=== PATIENT | female | born 1960 | race Caucasian/White ===

== ENCOUNTER 2024-02-06 22:06 | Inpatient (IN) | payer OTHER, SELFPAY ==
[2024-02-06] VITALS (9 sets, daily range): BP systolic 132–172; BP diastolic 79–102; BMI 38.1; BMI 37.7
--- NOTE | 2024-02-06 18:00 | ED.PDOC.TRB ---
ED Provider Triage
-
Patient seen by provider in Triage?: Seen in Triage
A medical screening examination has been initiated by a qualified medical provider. Based on the assessment performed at this time, it has been determined that an emergent medical condition may exist and the patient has been informed that further
medical evaluation and possible additional diagnostic testing may be needed.
HPI: This is a medical evaluation conducted in person to initiate diagnostic evaluation and provide initial therapeutics. Please see further documentation by the treating clinician.
GENERAL: Alert ,tearful
EYE: No visual abnormalities.
NECK: Trachea midline
ENT: No visible abnormalities.
LUNGS: No acute respiratory distress
NEUROLOGICAL: Alert and oriented
SKIN: no visible lesions.
MUSCULOSKELETAL: Moving extremities normally
PSYCH: Normal and appropriate interaction.
63-year-old female with past medical history of previous blood clot was on Eliquis but no longer on it over the past few years hypertension presenting to the emergency department after going to the urgent care for palpitations and found to be in
A-fib sent to the ER. Denies any chest pain does have some very vague shortness of breath only with exertion. The patient does have irregularly irregular rate and rhythm on examination. Initial labs and EKG ordered. Denies any new medications or
stimulant use.
[2024-02-06 18:25] LABS: % Basophils 0.9 % (0-2); % Eosinophils 2.8 % (0-6); % Immature Granulocytes 0.6 % (0-0.5); % Lymphocytes 19.9 % (20.5-51.1); % Monocytes 13.6 % (1.7-9.3); % Neutrophils 62.2 % (42.2-75.2); Absolute Basophils 0.1 10^3/uL (0-0.2); Absolute Eosinophils 0.3 10^3/uL (0-0.7); Absolute Immature Granulocytes 0.1 10^3/uL (0-0.05); Absolute Lymphocytes 2.2 10^3/uL (1.2-3.4); Absolute Monocytes 1.5 10^3/uL (0.1-0.6); Absolute Neutrophils 6.9 10^3/uL (1.4-6.5); Hemoglobin 16.4 g/dL (12.0-16.0); Mean Corp Hgb Conc. 34.9 g/dL (33.0-37.0); Mean Corpuscular Hgb 29.8 pg (27.0-31.0); Mean Corpuscular Volume 85.3 fL (81.0-99.0); Mean Platelet Volume 9.9 fL (7.4-10.4); Nucleated Red Blood Cells % 0 %; Platelet Count 254 10^3/uL (130-400); Red Blood Cell Count 5.51 10^6/uL (4.20-5.40); Red Cell Dist. Width 13.6 % (11.5-14.5); White Blood Cell Count 11.1 10^3/uL (4.8-10.8)
[2024-02-06 18:36] LABS: ALT (SGPT) 26 U/L (0-35); AST (SGOT) 29 U/L (14-36); Albumin 4.7 g/dl (3.5-5.0); Alkaline Phosphatase 87 U/L (38-126); Blood Urea Nitrogen 17 mg/dl (7-17); Calcium 9.7 mg/dl (8.4-10.2); Carbon Dioxide 28 mmol/L (22-30); Chloride 104 mmol/L (98-107); Glucose 105 mg/dl (70-99); Magnesium 2.1 mg/dl (1.6-2.3); Potassium 4.5 mmol/L (3.5-5.1); Sodium 145 mmol/L (135-145); Total Bilirubin 0.5 mg/dl (0.2-1.3); Total Protein 7.6 g/dl (6.3-8.2); eGFR > 60.00
[2024-02-06 19:06] LABS: TSH 2.09 uIU/ml (0.47-4.68)
[2024-02-06] MEDS: CARDIZEM 125 IV (19:35)
[2024-02-06] MEDS: CARDIZEM 10 MG IV (19:35)
[2024-02-06 19:39] LABS: INR 1.05; PT 13.8 Sec (11.4-14.6)
[2024-02-06] MEDS: NSS 1000 IV ×2 (19:42→23:43)
--- NOTE | 2024-02-06 20:31 | ED.GENMED ---
History of Present Illness
General
Chief Complaint: Heart Rate Problem
Source: patient
Exam Limitations: none
Time Seen by Provider: 02/06/24 19:04
History of Present Illness
History of Present Illness:
63-year-old female who presents after started feeling her heart flutter. The patient states that symptoms began abruptly suddenly this morning. Patient states that she has had palpitations off and on for long periods of time and wonders if she has
had this in the past. Patient does admit to being a little bit short of breath and has felt little bit dyspneic with exertion. No chest pain. No leg swelling. No leg cramping. She admits she has had a DVT in the past but was told she could stop
her anticoagulation.
Past History
Past History
ED Past Medical History: HTN, Hypercholesterolemia and Other (DVT)
ED Past Surgical History: Cholecystectomy and Gynecological
Social History
Tobacco: Non-smoker
Alcohol: Occasional
Drug: None
Personal:
Living: with family
Family History
Family History: Other (No history of gallbladder disease.)
Phy Exam
Physical Exam
Physical Exam:
CONSTITUTIONAL Patient alert and oriented to person, place and time. Well-appearing. Vital signs reviewed.
HEAD atraumatic, normocephalic.
EYES eyelids normal to inspection, Pupils equally round and reactive to light, Extraocular muscles intact, Conjunctiva normal, Sclera normal.
NECK normal range of motion, Trachea midline, no jugular venous distention.
RESPIRATORY CHEST No respiratory distress noted, Chest expansion equal, Bilateral breath sounds clear.
CARDIOVASCULAR irregularly irregular and tachycardic, Heart sounds normal.
ABDOMEN abdomen nontender, Bowel sounds normal. No distention.
BACK normal inspection, no obvious deformities
UPPER EXTREMITY range of motion normal, Motor strength normal, no cyanosis, no edema.
LOWER EXTREMITY range of motion normal, Motor strength normal, no cyanosis, no edema. No palpable cords. Negative Homans
NEURO Speech normal, No focal motor deficits, Malissa coma scale 15, Memory normal, Cranial Nerves intact to screening exam.
SKIN skin warm, dry, and normal in color.
PSYCHIATRIC patient oriented to person place and time, Normal affect.
Course
Orders/Labs/Results
Orders:
Orders
02/06/24 Breakfast
Regular
At Your Request: Full Participation
02/06/24 17:59
Electrocardiogram (*1) Stat
Reason for Study: Other
Other Reason for Exam: chest pain
EKG- Treatment ONCE
02/06/24 18:14
Complete Blood Count/With Diff Urgent
Comprehensive Metabolic Panel Urgent
Magnesium Urgent
TSH Urgent
02/06/24 19:22
PTT Urgent
Comment: ADD ON
Prothrombin Time Urgent
02/06/24 19:26
0.9% Sodium Chloride 1000 ml [Nss] 1,000 ml IV BOLUS
Diltiazem 125 mg/125 ml Nss [Cardizem] 125 mg in 125 ml IV NOW
Initial dose in mg/hr, then titrate:: 5
Titrate to keep:: Heart rate 80-100 bpm
Titrate by mg/hr:: 5 mg/hr
Frequency of titrations (minutes):: 15
Maximum dose in mg/hr:: 15
Diltiazem HCl [Cardizem] 10 mg IV NOW STA
02/06/24 19:27
CT Chest Pe Study Urgent
Comment:
Reason For Exam: sob, h/o DVT, new AF
02/06/24 20:20
EKG [Electrocardiogram (*1)] Urgent
Reason for Study: Atrial Fibrillation
EKG- Treatment ONCE
02/06/24 20:30
Heparin 8,100 units IV NOW STA
Heparin 30052 Units/250 ml 25,000 units in 250 ml IV PER PROTOCOL
Weight to be used for heparin protocol in kilograms (kg):: 100.7
Protocol:: DVT/PE
PTT Goal Range to be used:: PTT 73 to 111 seconds
Order type:: Initial
INITIAL Infusion Dose (UNITS/KG/hr) & then follow protocol:: 18 units/kg/hr
Infusion Dose in UNITS/hr & then follow protocol (UNITS/hr):: 1,800
INFUSION RATE in mL/hr & then follow protocol (mL/hr):: 18
For DVT/PE algorithm, re-bolus for low PTT?: Yes
PTT less than or equal to 64 seconds:: Re-bolus 80 units/kg (max 10,000units). Increase by 400 units/hr
(+ 4mL/hr)
PTT 64.1 to 72.9 seconds:: Re-bolus 40 units/kg (max 5,000 units). Increase by 200 units/hr
(+ 2mL/hr)
PTT 73 to 111 seconds:: Target Range. No change in rate.
PTT 111.1 to 130.9 seconds:: Decrease rate by 200 units/hr (- 2 mL/hr)
PTT 131 to 199.9 seconds:: HOLD for 1 hr. Then decrease by 300 units/hr (- 3mL/hr)
PTT greater than or equal to 200 seconds:: HOLD for 2 hrs & Notify Provider. Then decrease by 400 units/hr
(- 4mL/hr)
Lab follow-up:: Each change, PTT q6h until 2 consecutive are therapeutic. Then
PTT daily.
Nursing to Place Non Medication Order As Directed
Physician Order: PTT 6 hours after initial start of Heparin infusion
Above order entered?: Yes
02/06/24 20:39
Heparin 4,000 units IV PRN PRN
Heparin 8,000 units IV PRN PRN
02/06/24 20:51
Add On- LAB Urgent
Tests Added?: APTT
02/06/24 21:15
Admit/Transfer Patient As Directed
Co-Sign Provider:
Level of Care: Inpatient admission
Assign to:: Telemetry
Physician / Group: Hunter
Diagnosis: PE, A-Fib
Reason for Telemetry: Chest Pain syndromes
Date to Stop Telemetry: 02/08/24
Time to Stop Telemetry: 11:00
Reason for Hospitalization: PE, A-Fib
Expected length of stay greater than two midnights?: Yes
ELOS- Estimated Length of Stay in days: 2
I certify the patient meets the requirements for IP care: Yes
PRN Pain Medication Management As Directed
May give lesser potent ordered pain med per pt: Yes
preference::
Protocol:: Medication orders for pain may be administered in a
manner that supports deferring to patient preference
when the pt is:
- Requesting an ordered lesser potent pain medication.
Least to most potent pain medications are defined
as: acetaminophen < NSAID < tramadol < opioids
(morphine, oxycodone, hydromorphone).
- Requesting a lesser dose of the same medication IF
ORDERED.
- Requesting a less intrusive route of administration
if both routes are prescribed by the provider (PO <
IV).
02/06/24 21:16
Code Status As Directed
Resuscitation Status: Full Code
02/06/24 22:00
Flush (0.9% Sodium Chloride) [Flush (Nss)] See Dose Instructions IV PER PROTOCOL
02/06/24 23:27
Troponin I Q6H
0.9% Sodium Chloride 1000 ml [Nss] 1,000 ml IV 125 mls/hr
Acetaminophen [Tylenol] 650 mg PO Q4HPRN PRN
Escitalopram Oxalate [Lexapro] 20 mg PO HS
Lurasidone HCl [Latuda] 20 mg PO HS
02/06/24 23:27
Echo 2D MMode Doppler [Echo 2D MMode Color/Doppler] Routine
Reason for Study: PE,
Case Management Consult ONCE
Case Management Consult: Discharge Planning
Heparin Protocol- PTT Orders As Directed
PTT per Heparin protocol: -Obtain CBC and baseline PTT - if not already collected.
-Obtain PTT 6 hours from start of infusion. Then, every 6 hours until 2 consecutive
PTT's are therapeutic. Then, PTT Daily.
-With each rate change, obtain PTT every 6 hours until 2 consecutive PTT's are
therapeutic. Then, PTT Daily.
Activity As Directed
Activity Level: Ambulate
With Assistance
EKG with chest pain [ECG as needed] As Directed
ECG as needed for:: Chest Pain
I/O [Intake/ Output] As Directed
Frequency: Per unit guidelines
Notify MD As Directed
Notify physician if: PTT is greater than or equal to 200.
Vital Signs As Directed
Frequency: Per unit guidelines
Weight As Directed
Frequency: Daily
Oxygen Therapy [O2 Therapy] [RESP] Routine
Titrate/Wean O2 to maintain O2 sat greater than (%): 94
Periph Venous LOWER Ext Jose M Routine
Comment: Not urgent. Already on anticoagulation
Reason For Exam: DVT, PE
02/07/24 03:00
PTT Urgent
02/07/24 05:27
Troponin I Q6H
02/07/24 06:00
Basic Metabolic Panel IN AM
02/07/24 08:00
Lisinopril [Zestril] 5 mg PO DAILY
Rosuvastatin Calcium [Crestor] 10 mg PO DAILY
02/07/24 11:27
Troponin I Q6H
02/08/24 06:00
Complete Blood Count/No Diff Q2D
Comment: notify provider: Platelet count < 130,000 or decrease by 50% from baseline
02/08/24 11:00
DC Protocol for Telemetry ONCE
02/10/24 06:00
Complete Blood Count/No Diff Q2D
Comment: notify provider: Platelet count < 130,000 or decrease by 50% from baseline
02/12/24 06:00
Complete Blood Count/No Diff Q2D
Comment: notify provider: Platelet count < 130,000 or decrease by 50% from baseline
02/14/24 06:00
Complete Blood Count/No Diff Q2D
Comment: notify provider: Platelet count < 130,000 or decrease by 50% from baseline
02/16/24 06:00
Complete Blood Count/No Diff Q2D
Comment: notify provider: Platelet count < 130,000 or decrease by 50% from baseline
02/18/24 06:00
Complete Blood Count/No Diff Q2D
Comment: notify provider: Platelet count < 130,000 or decrease by 50% from baseline
02/20/24 06:00
Complete Blood Count/No Diff Q2D
Comment: notify provider: Platelet count < 130,000 or decrease by 50% from baseline
02/22/24 06:00
Complete Blood Count/No Diff Q2D
Comment: notify provider: Platelet count < 130,000 or decrease by 50% from baseline
Abnormal Lab Results
02/06/24
18:14
WBC 11.1 H 10^3/uL
(4.8-10.8)
RBC 5.51 H 10^6/uL
(4.20-5.40)
Hgb 16.4 H g/dL
(12.0-16.0)
Abs Immat Gran (auto) 0.1 H 10^3/uL
(0-0.05)
Absolute Neuts (auto) 6.9 H 10^3/uL
(1.4-6.5)
Absolute Monos (auto) 1.5 H 10^3/uL
(0.1-0.6)
Immature Gran % 0.6 H %
(0-0.5)
Lymphocytes % 19.9 L %
(20.5-51.1)
Monocytes % 13.6 H %
(1.7-9.3)
Glucose 105 H mg/dl
(70-99)
02/06/24 18:14
02/06/24 18:14
Vital Signs
Initial and Last Documented VS:
Initial Vital Signs
Temp Pulse Resp BP Pulse Ox
97.9 F 117 20 160/90 93
02/06/24 17:54 02/06/24 17:54 02/06/24 17:54 02/06/24 17:54 02/06/24 17:54
Last Documented Vital Signs
Temp Pulse Resp BP Pulse Ox
98.4 F 84 18 156/86 96
02/06/24 23:40 02/06/24 23:40 02/06/24 23:40 02/06/24 23:53 02/06/24 23:40
MDM/Problems Addressed
MDM/Problems Addressed:
Atrial fibrillation with RVR, bilateral pulmonary embolisms
*Radiology
Radiology exam reviewed: preliminary read by ED provider (CT reviewed immediately upon completion and noted to have bilateral main artery pulmonary embolisms)
*Pulse Oximetry
Patient hypoxic: no
*EKG
Interpreted by ED Provider?: Yes
Interpretation: abnormal
Rate: tachycardiac
Rhythm: a-fib
Interval: normal interval
Ischemia: non-specific ST changes
*Director Of Sustainability Interpretation
Rate: tachycardiac
Interpretation: abnormal
Rhythm: a-fib
*Critical Care Note
Total Time (30-74mins, 75-104mins- exclusive of procedures): 45 minutes
Data Reviewed
Source: patient
Further Testing Considered But Not Given:
Considered IR consultation but patient is stable
Patient Management
Discussion with other providers: Hospitalist and Radiologist
Escalation/DeEscalation of care consider admission/obs:
63-year-old female with history of DVT presents with new onset A-fib. Likely did convert to normal sinus rhythm after Cardizem drip and bolus. However given history CTA does reveal bilateral pulmonary emboli. Hemodynamically she is somewhat
stable at this point. No indication for intervention. Admit
ED Attending Note
-
Portions of this chart may have been created with voice recognition software.� Occasional wrong word or��sound alike� substitutions may have occurred due to the inherent limitations of voice recognition software.
Discharge Plan
Departure
Patient Disposition: Admit
Date of Disposition: 02/06/24
Time of Disposition: 20:31
Admit to: Telemetry
Presentation/result/management discussed w/ accepting MD/DO: Hospitalist
Discharge Problem:
Bilateral pulmonary embolism, Atrial fibrillation with RVR
Interventions
Interventions:
*Risk Screen - Suicide Last Done: 02/06/24 19:13
*General Assessment Last Done: 02/06/24 19:13
*Neglect/Abuse Screening Last Done: 02/06/24 19:13
*ED COVID-19 Vaccine History Last Done: 02/06/24 17:54
*Nursing Disposition Last Done: 02/06/24 23:20
ED- Cardiac Assessment Last Done: 02/06/24 19:13
ED- Pulmonary Assessment Last Done: 02/06/24 19:13
Discharge Date and Time
Discharge Date/Time: 02/06/24 23:22
[2024-02-06] MEDS: HEPARIN 8100 UNITS IV (20:53)
[2024-02-06] MEDS: HEPARIN 25000 UNITS/250 ML IV (20:57)
[2024-02-06 21:08] LABS: APTT 27.8 Sec (23.4-35.0)
--- NOTE | 2024-02-06 22:09 | HPS.HSE ---
Family Physician
-
Family Physician: Olvin Dasilva
Chief Complaint
-
Palpitations
History of Present Illness
Patient is a 63y F with PMH significant for hypertension, prior LLE DVT and lifelong palpitations who presents to ED complaining of palpitations. Patient states that she started with racing heartbeat / palpitations this AM. She notes that she
has had similar symptoms in the past - reporting episodic palpitations for much of her life. These are typically triggered by some sort of physical or emotional stress and tend to resolve rather quickly.
Today she took a nap in the afternoon hoping that her symptoms would resolve. When she woke she continued to have palpitations.
She presented to an Urgent Care at the urging of her family and was noted there to be in A-Fib. Patient denies any prior history of A-Fib / flutter or other clearly defined arrhythmia.
Patient was directed to the ED for further evaluation.
In the ED patient was noted to be in atrial fibrillation with rapid ventricular response. She was started on IV diltiazem and promptly converted back to NSR.
During evaluation in the ED, CTA chest was done which was positive for large, bilateral pulmonary emboli.
Patient denies any chest pain She does reports some dyspnea with exertion, but states that this has been going on to some extent since November.
Medical History
Past Medical History
Past Medical History: Reports Other
Additional Past Medical History:
Hypertension
Mild - Moderate Aortic Stenosis
LLE DVT
Anxiety
Obesity
Past Surgical History: Reports Other
Additional Past Surgical History:
Cervical Lymph Node Excision
Cholecystectomy
Breast Biopsy
Shoulder Arthroscopy
Social History
Tobacco: Non-smoker
Alcohol: None
Drug: None
Family History
Family History: Not pertinent
Allergies / Home Medications
Allergies reflects when Allergies were last updated in [facility].
Home Medications with original date entered in [facility]
Allergy/Medication List:
Allergies
Allergy/AdvReac Type Severity Reaction Status Date / Time
No Known Allergies Allergy Verified 02/06/24 18:01
Home Medications
escitalopram oxalate 20 mg tablet 20 mg PO HS 04/15/10
lisinopril 5 mg tablet 5 mg PO DAILY 04/15/10
magnesium 250 mg tablet 250 mg PO DAILY 10/27/11
clotrimazole-betamethasone 1 %-0.05 % topical cream 1 applic topical BIDPRN PRN itching 02/06/24
lurasidone 20 mg tablet 20 mg PO HS 02/06/24
rosuvastatin 10 mg tablet 10 mg PO DAILY 02/06/24
therapeutic multivitamin 1 tab PO DAILY 02/06/24
Review of Systems
-
History Source: Patient
A 12 point ROS was completed and negative except as noted: Yes
Constitutional: Reports Fatigue; Denies Fever or Chills
Respiratory: Denies Cough or Trouble Breathing
Cardiac: Reports Palpitations; Denies Chest Pain, Diaphoresis or Syncope
Abdomen/GI: Denies Abdominal Pain, Nausea, Vomiting or Diarrhea
: Denies Dysuria or Flank Pain
Musculoskeletal: Denies Joint Pain or Edema
Neurological: Denies Dizzy or Headache
Psych: Denies Depression or Anxiety
Physical Exam
Vital Signs
Vital Signs
Temp Pulse Resp BP Pulse Ox
97.9 F 120 17 136/84 94
02/06/24 17:54 02/06/24 19:35 02/06/24 19:13 02/06/24 19:35 02/06/24 19:13
Physical Exam
General: Other (63y F in no acute distress. Somewhat anxious regarding new diagnosis.)
HEENT: Moist mucous membranes and PERRLA
Respiratory: Clear; No Wheezes, Rales or Rhonchi
Cardiac: S1/S2, Regular Rhythm and Murmur (II/ AMY)
GI: Soft, Non Tender, Non Distended and Normal Bowel Sounds
Musculoskeletal: No Clubbing, No Cyanosis, No Edema and Other (No calf tenderness / cords.)
Neuro: AO x 3
Laboratory Results
-
02/06/24 18:14
02/06/24 18:14
Laboratory Results
PT 13.8 Sec (11.4-14.6) 02/06/24 19:22
INR 1.05 02/06/24 19:22
APTT Cancelled 02/06/24 20:30
Total Bilirubin 0.5 mg/dl (0.2-1.3) 02/06/24 18:14
AST 29 U/L (14-36) 02/06/24 18:14
ALT 26 U/L (0-35) 02/06/24 18:14
Alkaline Phosphatase 87 U/L (38-126) 02/06/24 18:14
Impression/Plan
-
A/P: Patient is a 63y F with PMH significant for HTN, prior DVT and anxiety who presents to ED for evaluation of palpitations.
Bilateral Pulmonary Emboli
History of LLE DVT
- Admit for further evaluation and treatment.
- CTA done in the ED with large, bilateral, proximal PEs.
- Not hypotensive or hypoxemic. No complaints of chest pain or dyspnea.
- IV heparin infusion overnight.
- Begin OAC prior to discharge (previously took Eliquis with good tolerance).
- Check Echo in AM.
- Follow for any new symptoms / complaints.
- Can check LE Dopplers in the AM for evidence of DVT.
- LLE DVT diagnosed in 2020 and took nearly a year on OAC for this to resolve.
- ? Vasc Sx eval / consideration for May-Thurner Syndrome. But CT A/P was done in 2021 and did not reveal any evidence of iliac compression.
- Patient will likely require lifelong anticoagulation at this point, for several reasons.
Atrial Fibrillation / Paroxysmal
- Current episode likely secondary to PE; however, patient describes lifelong episodes of palpitations.
- Denies any prior history of ambulatory monitoring, LINQ, etc.
- Now back in NSR.
- Monitor on telemetry.
- Cardiology evaluation.
- OAC as noted above.
Aortic Stenosis
- Mild - moderate on most recent Echo (2021).
- Update Echo as noted above.
Generalized Anxiety Disorder
- Somewhat anxious regarding current medical issues - understandably so.
- Continue current OP med regimen.
Obesity due to excess calories
- Affects all aspects of care - including increased risk of VTE.
- Encourage healthy diet and increased exercise with goal of weight loss.
DVT Prophylaxis: On IV Heparin
Code Status: Full
--- NOTE | 2024-02-06 23:30 | PTCARENOTE ---
Received pt from ED AAO*4, Pt transferred from stretcher to bed with minimal assistance. Vital signs stable. Heparin gtt running at 1800 units hour R hand PIV. NS at 125cc hour as per order via R AC PIV. All orders reviewed and acknowledged. Pt
updated with plan and oriented to room. Bed in low position with call acosta within reach.
[2024-02-06] MEDS: LATUDA 20 MG PO (23:43)
[2024-02-06] MEDS: LEXAPRO 20 MG PO (23:43)
[2024-02-07 03:36] LABS: APTT > 200 Sec (23.4-35.0)
--- NOTE | 2024-02-07 03:36 | PTCARENOTE ---
Ptt resulted at >200 with heparin gtt at 1800 units. Jeff Hennessy notified. Will follow protocol and hold heparin for 2 hours and restart gtt at 1400 units hour and repeat PTT at 0936.
[2024-02-07 03:55] VITALS: BP 140/78
[2024-02-07 06:00] VITALS: BMI 37.6
[2024-02-07 07:02] LABS: Troponin I 0.032 ng/ml
--- NOTE | 2024-02-07 07:21 | CON.CAR ---
Addendum entered and electronically signed by Misti Madrigal MD 02/07/24 13:53:
I saw and examined the patient.
The Director Service's note was reviewed and I agree with the note.
Comment: Patient seen by me and independently examined. She has prior history of lower extremity DVT treated with Eliquis for which she believes she had negative hematology assessment. She is sedentary and visits her who is in the facility
every day spending hours in the seated position. She had stop by [employer] and began having palpitations and chest discomfort with shortness of breath. She feels fine at rest but 'can feel it when she gets up to do activity '. She then presented to
the ER and was diagnosed with large pulmonary emboli with mild right heart strain by CT scan. She now has right-sided lower extremity DVT. Echocardiogram with normal LV and RV function. Pulmonary hypertension suggested by pressure measurement
(60s). She has known aortic valve stenosis which is currently moderate. Pulmonary has been consulted. She is currently on heparin. Oxygenation status is stable without supplemental oxygen. She had palpitations with this event and presented with
atrial fibrillation and spontaneously converted to sinus rhythm. She tells me she has been feeling these flutters now and then at times. In the past she had a different sensation of rapid heartbeat triggered by ectopy throughout her life. In the
distant past as a child she was even seen by cardiology for this. They felt this was not a concerning rhythm at that time.
Plan at this time:
-Pulmonary and primary service to treat pulmonary embolism in the setting of right heart strain and increased PA pressures
-Currently on heparin continue
-On discharge reassess echocardiogram in 3 months which we will schedule with office visit given mild right heart strain and increased PA pressures. Discussed with patient
-New atrial fibrillation noted on presentation. No recurrence. She will be on anticoagulation for pulmonary embolism and this will also cover atrial fibrillation and we will continue to assess as outpatient. After acute dosing for pulmonary
embolism patient should be on atrial fibrillation dosing of anticoagulation and continued. She is [id number] score of 2. She knows to call if increased palpitations noted. By history she may also have a history of SVT.
-Continue follow-up for aortic valve disease as we discussed.
Addendum entered and electronically signed by RUSTAM Edward 02/07/24 13:37:
Will repeat echocardiogram in 3 months to follow-up on elevated pulmonary pressures. Echocardiogram will be scheduled at time of her upcoming hospital follow-up visit which is scheduled for 1 month from now.
Original Note:
Consultation
Consultation Request
Date/Time Consultation Requested: 02/06/24 619
Date/Time Consultation Performed: 02/07/24 95
Requesting Provider: Cem Harrison DO
Performing Provider: RUSTAM Edward for Misti Madrigal MD
Reason for Consultation: afib, PE
Medical History
-
Chief Complaint: palpitations
History of Present Illness:
63y F with PMH significant for hypertension, prior LLE DVT 05/31 (treated with Eliquis but not currently on), mild-mod aortic stenosis, and lifelong palpitations who presents to ED complaining of palpitations. Patient states that she started
with racing heartbeat / palpitations on the morning of admission. She had a busy day, transporting her children to the airport and visiting her at his assisted living facility. She has had similar symptoms in the past but they always
resolve. Because the symptoms did not resolve she was encouraged by her family to go to an urgent care. She was found to be in atrial fibrillation and directed to the emergency room. In the past, palpitations were triggered by some sort of
physical or emotional stress and tended to resolve rather quickly. With the palpitations she reports associated mild chest discomfort, 'not pain'. She reports getting short of breath which she chalked up to fatigue and inactivity. She has no PND,
orthopnea, edema, she denies calf pain.
In the ED patient was noted to be in atrial fibrillation with rapid ventricular response. She was started on IV diltiazem and promptly converted back to NSR.
During evaluation in the ED, CTA chest was done which was positive for large, bilateral pulmonary emboli with evidence of RV strain. She was started on Heparin gtt.
She is getting an echocardiogram currently.
She denies any previous history of clotting disorder and any family history of clotting disorder. She was seen by hematology at the time of her DVT in 2020 and tells me she had a workup. She is not aware of any abnormal findings.
She flew to [place] in November. She tells me she spends a lot of time sitting in a recliner as her resides in an assisted living facility and she spends a lot of time sitting with him.
PMH:
HTN
LLE DVT - 05/31
palpitations
aortic stenosis - mild-mod
anxiety
obesity
Past Medical History
Past Medical History: Other (as above)
Past Surgical History: Cholecystectomy, , Gynecological (breast biopsy), Orthopedic (shoulder arthroscopy) and Other (cervical lymph node excision)
Social History
Tobacco: Former Smoker (Quit 1984)
Alcohol: Occasional (Glass of wine once a month)
Drug: None
Personal:
Living: Alone ( is in an assisted living facility)
Family History
Family History: Reviewed & Not Pertinent
Allergies / Home Medications
Allergy/AdvReac Type Severity Reaction Status Date / Time
No Known Allergies Allergy Verified 02/06/24 18:01
�Medication �Instructions �Recorded �Confirmed �Type
escitalopram oxalate 20 mg tablet 20 mg PO HS 04/15/10 02/06/24 History
lisinopril 5 mg tablet 5 mg PO DAILY 04/15/10 02/06/24 History
magnesium 250 mg tablet 250 mg PO DAILY 10/27/11 02/06/24 History
clotrimazole-betamethasone 1 1 applic topical BIDPRN PRN itching 02/06/24 02/06/24 History
%-0.05 % topical cream
lurasidone 20 mg tablet 20 mg PO HS 02/06/24 02/06/24 History
rosuvastatin 10 mg tablet 10 mg PO DAILY 02/06/24 02/06/24 History
therapeutic multivitamin 1 tab PO DAILY 02/06/24 02/06/24 History
Physical Exam
Vital Signs
Temp Pulse Resp BP Pulse Ox
98 F 78 18 140/78 91
02/07/24 03:55 02/07/24 03:55 02/07/24 03:55 02/07/24 03:55 02/07/24 03:55
O2 sat 91-94% on RA
GEN: No distress, awake, Ox3, breathing comfortable
HEENT: supple, anicteric, mmm
LUNGS: CTA, no wheezes/rales
CV: Reg, S1/S2, 2 out of 6 systolic ejection murmur left sternal border
ABD: soft, BS+, NT/ND
EXT: No edema
NEURO: Gross non-focal
SKIN: No rash
Lab Results
02/06/24 18:14
Troponin I 0.032 ng/ml 02/07/24 05:22
troponin 02/07/24 0059: 0.040
troponin 02/07/24 0522: 0.032
serial 3rd troponin pending
EKG 02/06/249 personally reviewed: afib with RVR
EKG 02/06/242022 personally reviewed: NSR
Physical Exam
General: Other (See above)
Impression / Plan
-
PCP: Olvin Dasilva
Cardiology: Reji Baron MD (last seen 06/01)
IMPRESSION:
B/L large pulmonary embolism -new
paroxysmal atrial fibrillation - new
h/o LLE DVT diagnosed 05/31, treated with Eliquis at the time
HTN
palpitations
anxiety
obesity
elevated troponin
Echocardiogram 03/10/22: Normal LV size and function with no wall motion abnormalities, EF 65%. Mild concentric LVH, normal diastolic function. Normal RV size and function, mild to moderate aortic stenosis (34/16/ 1.2-1.3) compared to previous echo
aortic stenosis has progressed from mild to mild to moderate. PASP 20-25mmHg.
Lexiscan MIBI 06/29/2022: Small, mild mildly reversible defect in the apical lateral and apex consistent with soft tissue attenuation, EF 70%.
Ultrasound peripheral venous lower extremities 05/16/2022: No evidence of DVT of the left lower extremity
Chest CT 02/06/24: Large pulmonary emboli within the right and left pulmonary arteries extending throughout segmental pulmonary arteries with evidence of mild right heart strain with flattening of the interventricular septum and slight flux of
contrast into the IVC. Main pulmonary artery mildly dilated at 3.6 cm suggestive of pulmonary artery hypertension.
Ultrasound LE today 02/07/24: There is nonocclusive deep venous thrombosis in the right popliteal vein
Echocardiogram 02/07/24: normal LV and RV function, EF 70-75%, mod (46/24/1.2). PASP 60-65 mmHg -was normal last echo 03/02
Plan: 63y F with PMH hypertension, prior LLE DVT 05/31 (previously treated with Eliquis), aortic stenosis, and lifelong palpitations who presents to ED complaining of persistent palpitations. Found to be in rapid atrial fibrillation and CT
chest showed B/L large pulmonary emboli with evidence of RV strain and pulmonary artery hypertension. She converted back to NSR after one dose of IV Diltiazem. Initial troponin 0.04 and trending down. She was started on Heparin gtt. Echo today
shows normal LV and RV function but new elevation in pulmonary artery pressures. She also has a new right lower extremity DVT per lower extremity ultrasound.
1. new B/L PE
-continue heparin with eventual plan to transition or oral anticoagulation for PE dosing
-Echo today shows normal LV and RV function but new elevation in pulmonary artery pressures
-pulmonary consult
-Patient reports having previous hematologic workup at time she had DVT. She will need to follow-up with her strategy execution consultant, Dr. Moffett. This can be done in the outpatient setting.
-O2 sats low to mid 90s off oxygen
-not tachycardic
2. paroxysmal afib
-presented with palpitations and found to be in rapid afib. Converted back to NSR after one dose IV Cardizem. Has longstanding h/o palpitations - could have been undiagnosed afib. Would recommend lifelong anticoagulation given recurrent
thromboembolism and now diagnosed afib. CHA2DS Vasc score 4 (HTN, previous thromboembolism, female).
-start beta dave if recurrent afib
-personally reviewed telemetry, no recurrent afib. NSR HRs 70s.
-Will arrange for follow-up in our office within 1 month.
3. aortic stenosis
-Echo today shows moderate aortic stenosis, this has progressed since last echo in 2021.
Follow-up with ornamental plaster sticker in outpatient setting for long-term management. Continue statin with LDL goal less than 70.
4. HTN
-BPs mildly elevated
-continue Lisinopril
-t/c increase Lisinopril if not started on rate controlling med
5. elevated troponin - initial trop 0.04 and 2nd troponin trending down. Continue serial trop x 3. Pt without CP and EKG nonischemic. Troponin elevation likely nonischemic myocardial injury.
discussed case with nurse. Answered patient's questions.
Data Reviewed
-
EKG: Tracing Personally Visualized and interpreted
[2024-02-07 07:25] LABS: Blood Urea Nitrogen 15 mg/dl (7-17); Calcium 8.8 mg/dl (8.4-10.2); Carbon Dioxide 22 mmol/L (22-30); Chloride 107 mmol/L (98-107); Estimated Creatinine Clearance 94 ml/min; Glucose 102 mg/dl (70-99); Potassium 4.2 mmol/L (3.5-5.1); Sodium 143 mmol/L (135-145); eGFR > 60.00
[2024-02-07 07:50] VITALS: BP 148/81
[2024-02-07 08:09] LABS: Hepatitis C Antibody Negative (Negative)
--- NOTE | 2024-02-07 10:03 | W.PN.HOSP.TC ---
Today's Communication/Plan
-
IV heparin for now
monitor HR
Pulm recs
ECHO
Assessment / Plan
Assessment / Plan
A/P: Patient is a 63y F with PMH significant for HTN, prior DVT and anxiety who presents to ED for evaluation of palpitations.
Bilateral Pulmonary Emboli
RLE DVT
History of LLE DVT
- CTA done in the ED with large, bilateral, proximal PEs.
- Not hypotensive or hypoxemic. No complaints of chest pain or dyspnea.
- IV heparin infusion and switch to Eliquis in 24-36h
- Echo with no regional wall motion abnormality. EF 7075%. Stage I diastolic dysfunction. Moderate aortic stenosis. Trace TR. PASP 60 to 65%.
- Follow for any new symptoms / complaints.
- CT A/P was done in 2021 and did not reveal any evidence of iliac compression.
- Patient will likely require lifelong anticoagulation at this point, for several reasons.
- Pulmonary consulted.
- f/u with primary auto adjudication specialist Dr. Moffett as OP.
Atrial Fibrillation / Paroxysmal
- Current episode likely secondary to PE; however, patient describes lifelong episodes of palpitations.
- Denies any prior history of ambulatory monitoring, LINQ, etc.
- Now back in NSR.
- Monitor on telemetry.
- Cardiology evaluation.
- OAC as noted above.
Pulmonary hypertension
-Possibly secondary to pulmonary embolism versus possibility of SAJAN/OHS
-Recommend sleep study if not recently done
Elevated troponin likely 2/2 non ischemic myocardial injury in setting of PE/Afib
-trend for now.
-ECHO as above.
-Cards following
Aortic Stenosis
- Mild - moderate on most recent Echo (2021).
- Update Echo as noted above.
Generalized Anxiety Disorder
- Somewhat anxious regarding current medical issues - understandably so.
- Continue Latuda
Obesity due to excess calories
- Affects all aspects of care - including increased risk of VTE.
- Encourage healthy diet and increased exercise with goal of weight loss.
DVT Prophylaxis: On IV Heparin
Code Status: Full
Anticipated Discharge: > 48 hours
Subjective/Interval History
-
Date of Service: February 07, 2024
hx of DVT
air travelled in November
Objective Data
-
Labs:
Laboratory Results
02/07/24 02/07/24 02/07/24
02:58 05:22 09:36
PT Cancelled
INR Cancelled
APTT > 200 H* Cancelled
Sodium 143
Potassium 4.2
Chloride 107
Carbon Dioxide 22
BUN 15
Creatinine 0.7
Glucose 102 H
Calcium 8.8
02/07/24
11:36
PT Pending
INR Pending
APTT Pending
Sodium
Potassium
Chloride
Carbon Dioxide
BUN
Creatinine
Glucose
Calcium
Vital Signs:
Vital Signs
Temp Pulse Resp BP Pulse Ox
97.5 F 75 20 148/81 94
02/07/24 07:50 02/07/24 07:50 02/07/24 07:50 02/07/24 07:50 02/07/24 07:50
I&O
02/06/24 02/07/24 02/08/24
06:59 06:59 06:59
Intake Total 1090 / 1090
Balance 1090 / 1090
Physical Exam
-
General: Well Developed and No Apparent Distress
HEENT: Normocephalic, Atraumatic and Moist Mucous Membranes
Respiratory: Clear to Auscultation
Cardiac: Regular Rhythm and S1/S2; Negative Murmur, Rub or Gallop
GI: Soft, Nontender, Nondistended and Normal Bowel Sounds; Negative Organomegaly
Rectal: Deferred by Provider
Musculoskeletal: No Clubbing, No Cyanosis and No Edema
Skin: Negative Rash
Neuro: Awake, AO x 3 and Nonfocal/Grossly Intact
Data Reviewed
-
Total Time Spent with Patient (in minutes): 56
[2024-02-07] MEDS: CRESTOR 10 MG PO (10:04)
[2024-02-07] MEDS: ZESTRIL 5 MG PO (10:04)
[2024-02-07] MEDS: NSS 1000 IV (10:04)
--- NOTE | 2024-02-07 11:17 | CON.PUL ---
Consultation
Consultation Request
Date/Time Consultation Requested: 02/07/24
Date/Time Consultation Performed: 02/07/24
Performing Provider: Fernando
Reason for Consultation: PE
Medical History
-
History of Present Illness:
Patient is a 63-year-old female with previous history of left lower extremity DVT, hypertension, obesity presenting with palpitations noted the day of admission. She was diagnosed with atrial fibrillation. Of note, she had CT obtained indicating
positive large bilateral pulm emboli as well. She has lower extremity duplex showing right lower extremity DVT.
She was diagnosed with left lower extremity DVT 2 years ago and completed 3 months of Eliquis. There was demonstrated recurrence of clot in which she was placed on a prolonged course of Eliquis she thinks about 6 months additionally. She denies
any family history of blood clots. She is not aware of any genetic history.
Denies any prior history of lung disease, she was a former smoker half a pack a day for 10 years, quit over 30 years ago.
She denies any history of snoring, has never had a sleep study.
.
Past Medical History
Past Medical History: Other (see list below)
Social History
Tobacco: Former Smoker
Alcohol: None
Drug: None
Family History
Family History: Reviewed & Not Pertinent
Allergies / Home Medications
Allergies
Allergy/AdvReac Type Severity Reaction Status Date / Time
No Known Allergies Allergy Verified 02/06/24 18:01
Home Medications
�Medication �Instructions �Recorded �Confirmed �Last Taken �Type
escitalopram oxalate 20 mg tablet 20 mg PO HS Depression 04/15/10 02/06/24 02/05/24 History
lisinopril 5 mg tablet 5 mg PO DAILY Blood Pressure 04/15/10 02/06/24 02/06/24 History
magnesium 250 mg tablet 250 mg PO DAILY Electrolyte 10/27/11 02/06/24 02/06/24 History
Repletion
clotrimazole-betamethasone 1 1 applic topical BIDPRN PRN itching 02/06/24 02/06/24 Unknown History
%-0.05 % topical cream
lurasidone 20 mg tablet 20 mg PO HS Mental Health/Anxiety 02/06/24 02/06/24 02/05/24 History
rosuvastatin 10 mg tablet 10 mg PO DAILY High Cholesterol 02/06/24 02/06/24 02/06/24 History
therapeutic multivitamin 1 tab PO DAILY Supplement 02/06/24 02/06/24 02/06/24 History
Review of Systems
-
History Source: Patient
All other systems: Negative unless noted
Vitals / Labs / Diagnostic Testing
Vital Signs
Temp Pulse Resp BP Pulse Ox
97.5 F 75 20 148/81 94
02/07/24 07:50 02/07/24 07:50 02/07/24 07:50 02/07/24 07:50 02/07/24 07:50
Lab Data
02/06/24 18:14
02/07/24 05:22
Laboratory Results
02/06/24 02/06/24 02/07/24
19:22 20:30 02:58
PT 13.8
INR 1.05
APTT 27.8 Cancelled > 200 H*
02/07/24
09:36
PT Cancelled
INR Cancelled
APTT Cancelled
Diagnostic Testing:
Physical Exam
-
HEENT: Normocephalic, Anicteric and Moist Mucous Membranes
Cardiovascular: S1/S2 and Regular Rhythm
Respiratory: Clear and Non-Labored Respirations
GI: Soft, Non Distended and Non Tender
Neurology: Awake, Alert, Oriented, AO x 3 and No Motor Deficits
Skin: Warm, Dry and Good Color
General: Comfortable and Other (NAD)
Assessment
-
Patient is a 63-year-old female with previous history of left lower extremity DVT, hypertension, obesity presenting with palpitations noted the day of admission. She was diagnosed with atrial fibrillation. Of note, she had CT obtained indicating
positive large bilateral pulm emboli as well. She has lower extremity duplex showing right lower extremity DVT. We are consulted for eval.
Bilateral Pulmonary Emboli
RLE DVT
New onset Afib, palpitations
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
History of LLE DVT
HTN
PAF
Anxiety
Obesity, BMI 37
Cervical Lymph Node Excision
Cholecystectomy
Breast Biopsy
Shoulder Arthroscopy
Plan
No oxygen was needed on admission, currently saturating >90% on RA
Home O2 evaluation if needed
Prior history of lung disease is not noted
She was diagnosed with left lower extremity DVT 2 years ago and completed 3 months of Eliquis.
There was demonstrated recurrence of clot in which she was placed on a prolonged course of Eliquis she thinks about 6 months additionally.
She denies any family history of blood clots. She is not aware of any genetic history.
Denies any prior history of lung disease, she was a former smoker half a pack a day for 10 years, quit over 30 years ago.
She denies any history of snoring, has never had a sleep study.
CXR/CT obtained indicating bilateral PE
Other imaging reviewed
We discussed lifelong OAC, she is aware
Can transition IV hep to PO eliquis, she has tolerated this before
ECHO results pending, reviewed normal function
Mildly elevated trops, mild RHS likely
Moderate PH noted, will need repeat ECHO as OP to monitor
Weight loss measures recommended
Obesity likely contributing to respiratory symptoms
Will need outpatient pulmonary evaluation in our office for PFTs and 6MWT
Reviewed with patient
Risk factors assessed for underlying sleep disordered breathing also noted, recommend outpatient PSG/sleep evaluation
We will follow
Diagnostic Data
Chest X-Ray:
CT Scan: CHEST 02/06/24- 1. Large pulmonary emboli within the right and left pulmonary arteries extending throughout the segmental pulmonary arteries. There is evidence of mild right heart strain with flattening of the interventricular septum and
slight flux of contrast into the IVC. The main pulmonary artery is mildly dilated measuring 3.6 cm suggestive of pulmonary arterial hypertension.
LE Duplex- There is nonocclusive deep venous thrombosis in the right popliteal vein
Echo: 02/07/24- Normal left ventricular size and systolic function. No regional wall motion abnormalities are seen. LV ejection fraction is 70-75%. Mild concentric left ventricular hypertrophy. Stage I diastolic dysfunction suggestive of abnormal
relaxation. Normal right ventricular size. Normal right ventricular systolic function. Structurally normal mitral valve without significant stenosis or regurgitation. Moderate aortic stenosis. Peak/mean gradients are 46/24mmHg. The valve area by
pressure half time is 1.2cm sq, using a LVOT of 2.0cm. Mild aortic regurgitation. Trace tricuspid regurgitation. Estimated pulmonary artery pressure of 60-65 mmHg. Assuming a right atrial pressure of 8 mmHg. Compared to prior study 03/10/2022
pulmonary hypertension is now noted. Aortic valve stenosis is now moderate.
PFT's:
Reports and relevant images were personally reviewed.
Total time spent on this consultation __75__ includes review of history, physical exam, medications, laboratory data, personal review of imaging, extensive review of outpatient records, discussion with care team and respiratory therapy.
[2024-02-07 11:20] VITALS: BP 183/88
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
[2024-02-07 11:58] LABS: INR 1.15; PT 14.8 Sec (11.4-14.6)
[2024-02-07 12:00] LABS: APTT 90.7 Sec (23.4-35.0)
[2024-02-07 12:19] LABS: Troponin I < 0.012 ng/ml
[2024-02-07] MEDS: HEPARIN 25000 UNITS/250 ML IV (14:29)
[2024-02-07] MEDS: ZESTRIL 15 MG PO (15:35)
[2024-02-07 15:45] VITALS: BP 181/88
[2024-02-07 19:30] VITALS: BP 134/83
[2024-02-07] MEDS: TYLENOL 650 MG PO (20:18)
[2024-02-07 20:44] LABS: APTT 63.6 Sec (23.4-35.0)
[2024-02-07] MEDS: HEPARIN 8000 UNITS IV (21:13)
[2024-02-07] MEDS: LATUDA 20 MG PO (21:42)
[2024-02-07] MEDS: LEXAPRO 20 MG PO (21:42)
[2024-02-07 23:54] VITALS: BP 144/68
[2024-02-08 03:27] VITALS: BP 133/81
[2024-02-08 03:50] LABS: APTT > 200 Sec (23.4-35.0)
[2024-02-08 06:29] LABS: Hematocrit 41.8 % (37.0-47.0); Hemoglobin 14.4 g/dL (12.0-16.0); Mean Corp Hgb Conc. 34.4 g/dL (33.0-37.0); Mean Corpuscular Hgb 29.9 pg (27.0-31.0); Mean Corpuscular Volume 86.9 fL (81.0-99.0); Mean Platelet Volume 10.5 fL (7.4-10.4); Platelet Count 211 10^3/uL (130-400); Red Blood Cell Count 4.81 10^6/uL (4.20-5.40); Red Cell Dist. Width 13.6 % (11.5-14.5); White Blood Cell Count 8.9 10^3/uL (4.8-10.8)
[2024-02-08 07:33] VITALS: BP 141/78
[2024-02-08] MEDS: HEPARIN 25000 UNITS/250 ML IV (08:11)
[2024-02-08] MEDS: ZESTRIL 20 MG PO (08:14)
[2024-02-08] MEDS: CRESTOR 10 MG PO (08:15)
--- NOTE | 2024-02-08 09:33 | W.PN.CARDCBS ---
Addendum entered and electronically signed by Samy Henderson MD 02/08/24 15:51:
I saw and examined the patient.
The Construction Plumber's note was reviewed and I agree with the note.
Comment: Briefly, 63-year-old woman past medical history of moderate aortic stenosis and DVT who presented initially with palpitations and dyspnea found to be in atrial fibrillation which is a new diagnosis
CT PE was ordered and she was found to have pulmonary embolism as well
Transthoracic echocardiogram with elevated PA pressures however she had normal RV size and function -plan to repeat in approximately 3 months to reassess PA pressures
Episode of atrial fibrillation was brief, she spontaneously converted to sinus rhythm while in the emergency department
Maintained on heparin drip here, being transitioned to Eliquis for discharge
Stable cardiac status
Outpatient follow-up has been arranged
Addendum entered and electronically signed by RUSTAM Edward 02/08/24 11:21:
Given complaints of dizziness, I reduced Lisinopril to 10 mg daily.
Original Note:
Today's Communication / Plan
-
-transition to oral anticoagulation
-no recurrent afib
-ambulate-check O2 with exertion
outpatient cardiology f/u 1 month, repeat echo 3 months - already arranged
Impression / Plan
-
PCP: Olvin Dasilva
Cardiology: Reji Baron MD (last seen 06/01)
IMPRESSION:
B/L large pulmonary embolism -new
paroxysmal atrial fibrillation - new
RLE DVT- new
elevated pulmary pressures and RV strain on echo-new
aortic stenosis (moderate)
shortness of breath
dizziness
h/o LLE DVT diagnosed 05/31, treated with Eliquis at the time
HTN
palpitations
anxiety
obesity
elevated troponin
Echocardiogram 03/10/22: Normal LV size and function with no wall motion abnormalities, EF 65%. Mild concentric LVH, normal diastolic function. Normal RV size and function, mild to moderate aortic stenosis (34/16/ 1.2-1.3) compared to previous echo
aortic stenosis has progressed from mild to mild to moderate. PASP 20-25mmHg.
Lexiscan MIBI 06/29/2022: Small, mild mildly reversible defect in the apical lateral and apex consistent with soft tissue attenuation, EF 70%.
Ultrasound peripheral venous lower extremities 05/16/2022: No evidence of DVT of the left lower extremity
Chest CT 02/06/24: Large pulmonary emboli within the right and left pulmonary arteries extending throughout segmental pulmonary arteries with evidence of mild right heart strain with flattening of the interventricular septum and slight flux of
contrast into the IVC. Main pulmonary artery mildly dilated at 3.6 cm suggestive of pulmonary artery hypertension.
Ultrasound LE 02/07/24: There is nonocclusive deep venous thrombosis in the right popliteal vein
Echocardiogram 02/07/24: normal LV and RV function, EF 70-75%, mod (46/24/1.2). PASP 60-65 mmHg -was normal last echo 03/02
Plan: 63y F with PMH hypertension, prior LLE DVT 05/31 (previously treated with Eliquis, had hematologic workup at the time which she believes was negative), aortic stenosis, and lifelong palpitations who presents to ED complaining of persistent
palpitations. Found to be in rapid atrial fibrillation and CT chest showed B/L large pulmonary emboli with evidence of RV strain and pulmonary artery hypertension. She converted back to NSR after one dose of IV Diltiazem. Initial troponin 0.04
and trended down. She was started on Heparin gtt. Echo today shows normal LV and RV function but new elevation in pulmonary artery pressures. She also has a new right lower extremity DVT per lower extremity ultrasound. Lisinopril was increased
yesterday from 5 mg daily to 20 mg daily as BPs were elevated in 180s/ systolically. Today she feels a little dyspneic with walking into the bathroom. O2 sats have been 92-94% on RA. Also c/o mild dizziness.
1. new B/L PE
-continue heparin with eventual plan to transition to oral anticoagulation for PE dosing - to be determined by primary team and pulmonary. Pt was on Eliquis in the past and tolerated.
-Echo today shows normal LV and RV function but new elevation in pulmonary artery pressures
-appreciate pulmonary consult- pt will need lifelong anticoagulation, outpatient pulmonary evaluation with PFTs and 6MWT
-Patient reports having previous hematologic workup at time she had DVT. She will need to follow-up with her disability rater, Dr. Moffett. This can be done in the outpatient setting.
-has not required oxygen
-repeat echo in 3 months to reassess PAPs
2. paroxysmal afib
-presented with palpitations and found to be in rapid afib. Converted back to NSR after one dose IV Cardizem. Has longstanding h/o palpitations - could have been undiagnosed afib or SVT. Would recommend lifelong anticoagulation given recurrent
thromboembolism and now diagnosed afib. CHA2DS Vasc score 4 (HTN, previous thromboembolism, female).
-personally reviewed telemetry, no recurrent afib. NSR HRs 70s.
-follow-up in our office has been arrange for 1 month.
3. aortic stenosis
-Echo today shows moderate aortic stenosis, this has progressed since last echo in 2021.
Follow-up with car shagger in outpatient setting for long-term management. Continue statin with LDL goal less than 70.
4. HTN
-BPs better controlled but now feeling dizzy
-would consider reducing Lisinopril to 10 mg daily
5. elevated troponin - initial trop 0.04 and 2nd troponin trending down. Continue serial trop x 3. Pt without CP and EKG nonischemic. Troponin elevation likely nonischemic myocardial injury.
6. SOB - feeling a little more short of breath today. O2 sat has been low normal. Lungs CTA. Would have her ambulate and check O2 sat with ambulation.
Plan discussed with pt and I answered patient's questions.
Progress Note - Ibm Bpm Developer
Subjective
Date of Service: February 08, 2024
Objective
Labs:
02/08/24 05:15
02/07/24 05:22
Labs
Hgb 14.4 g/dL (12.0-16.0) 02/08/24 05:15
Hct 41.8 % (37.0-47.0) 02/08/24 05:15
Plt Count 211 10^3/uL (130-400) 02/08/24 05:15
PT 14.8 Sec (11.4-14.6) H 02/07/24 11:31
INR 1.15 02/07/24 11:31
APTT > 200 Sec (23.4-35.0) H* 02/08/24 03:16
Sodium 143 mmol/L (135-145) 02/07/24 05:22
Potassium 4.2 mmol/L (3.5-5.1) 02/07/24 05:22
BUN 15 mg/dl (7-17) 02/07/24 05:22
Creatinine 0.7 mg/dL (0.6-1.0) 02/07/24 05:22
Glucose 102 mg/dl (70-99) H 02/07/24 05:22
Troponins
02/07/24 02/07/24 02/07/24
00:59 05:22 11:31
Troponin I 0.040 H* 0.032 < 0.012 D
Vital Signs and I&O:
Vital Signs
Temp Pulse Resp BP Pulse Ox
97.6 F 65 22 141/78 94
02/08/24 07:33 02/08/24 07:33 02/08/24 07:33 02/08/24 08:14 02/08/24 07:33
Vital Signs
Temp Pulse Resp BP Pulse Ox
97.6 F 65 22 141/78 94
02/08/24 07:33 02/08/24 07:33 02/08/24 07:33 02/08/24 08:14 02/08/24 07:33
Intake & Output
0802/07/24 02/08/24 02/09/24
06:59 06:59 06:59 06:59
Intake Total 1090 / 1090 118 / 118
Balance 1090 / 1090 118 / 118
Physical Exam
Physical Exam
O2 sat 92-94% on RA
GEN: No distress, awake, Ox3, breathing comfortable
HEENT: supple, anicteric, mmm
LUNGS: CTA, no wheezes/rales
CV: Reg, S1/S2, 2 out of 6 systolic ejection murmur left sternal border
ABD: soft, BS+, NT/ND
EXT: No edema
NEURO: Gross non-focal
SKIN: No rash
[2024-02-08 10:38] LABS: APTT 104.5 Sec (23.4-35.0)
--- NOTE | 2024-02-08 10:48 | PTCARENOTE ---
pt ambulated with RN Pulsox remained between 90-95% on RA and HR in 80s
[2024-02-08 11:33] VITALS: BP 139/81
[2024-02-08] MEDS: ELIQUIS 10 MG PO (11:45)
--- NOTE | 2024-02-08 11:53 | PTCARENOTE ---
Heparin gtt stopped, D/W CM re: Deejay gaines
--- NOTE | 2024-02-08 11:58 | W.PN.HOSP.TC ---
Addendum entered and electronically signed by Andrea Hawk MD 02/08/24 14:55:
PE with mild cor pulmonale as CT chest with There is evidence of mild right heart strain with flattening of the interventricular septum and slight flux of contrast into the IVC. The main pulmonary artery is mildly dilated measuring 3.6 cm
suggestive of pulmonary arterial hypertension.
Original Note:
Today's Communication/Plan
-
po eliquis
OP repeat ECHO
Assessment / Plan
Assessment / Plan
A/P: Patient is a 63y F with PMH significant for HTN, prior DVT and anxiety who presents to ED for evaluation of palpitations.
Bilateral Pulmonary Emboli
RLE DVT
History of LLE DVT
- CTA done in the ED with large, bilateral, proximal PEs.
- Not hypotensive or hypoxemic. No complaints of chest pain or dyspnea.
- Echo with no regional wall motion abnormality. EF 70-75%. Stage I diastolic dysfunction. Moderate aortic stenosis. Trace TR. PASP 60 to 65%.
- Follow for any new symptoms / complaints.
- CT A/P was done in 2021 and did not reveal any evidence of iliac compression.
- Patient will likely require lifelong anticoagulation at this point, for several reasons.
- Pulmonary consulted.
- f/u with primary patient relations liaison Dr. Moffett as OP. Patient verbalized understanding and agreed
- Patient stable on room air. Patient ambulated in the hallway with RN with stable heart rate and O2 sats stable did not qualify for home O2. Does, transition heparin to Eliquis
Atrial Fibrillation / Paroxysmal
- Current episode likely secondary to PE; however, patient describes lifelong episodes of palpitations.
- Denies any prior history of ambulatory monitoring, LINQ, etc.
- Now back in NSR.
- Monitor on telemetry.
- Cardiology evaluation.
- OAC as noted above.
Pulmonary hypertension
-Possibly secondary to pulmonary embolism versus possibility of SAJAN/OHS
-Recommend sleep study if not recently done
Elevated troponin likely 2/2 non ischemic myocardial injury in setting of PE/Afib
-ECHO as above.
-Cards following
Primary hypertension
-Lisinopril dose adjusted to 10 mg (felt dizzy with 20mg)
Aortic Stenosis
- Mild - moderate on most recent Echo (2021).
- Update Echo as noted above.
Generalized Anxiety Disorder
- Continue Latuda
Obesity due to excess calories
- Affects all aspects of care - including increased risk of VTE.
- Encourage healthy diet and increased exercise with goal of weight loss.
DVT Prophylaxis: Eliquis
Code Status: Full
Dispo Home later today.
More than 30 minutes spent in discharge including
Final examination of the patient
Summarizing hospital stay
Instructions for continuing care to all relevant caregivers
Preparation of discharge records, prescriptions, and referral forms
Total time spent (in minutes): 52
Anticipated Discharge: Today
Subjective/Interval History
-
Date of Service: February 08, 2024
Feeling better
Denies any chest pain or palpitations
Feeling tired overall
Remains in normal sinus rhythm on telemetry
No episode of tachycardia noted on telemetry
Objective Data
-
Labs:
Laboratory Results
02/08/24 02/08/24 02/08/24
03:16 05:15 10:11
WBC 8.9
Hgb 14.4
Hct 41.8
Plt Count 211
APTT > 200 H* 104.5 H
Vital Signs:
Vital Signs
Temp Pulse Resp BP Pulse Ox
97.5 F 70 22 139/81 96
02/08/24 11:33 02/08/24 11:33 02/08/24 11:33 02/08/24 11:33 02/08/24 11:33
I&O
0802/08/24 02/09/24
06:59 06:59 06:59
Intake Total 1089 / 1089 118 / 118
Balance 1089 118 / 118
Physical Exam
-
General: Well Developed and No Apparent Distress
HEENT: Normocephalic, Atraumatic and Moist Mucous Membranes
Respiratory: Clear to Auscultation
Cardiac: Regular Rhythm and S1/S2; Negative Murmur, Rub or Gallop
GI: Soft, Nontender, Nondistended and Normal Bowel Sounds; Negative Organomegaly
Rectal: Deferred by Provider
Musculoskeletal: No Clubbing, No Cyanosis and No Edema
Skin: Negative Rash
Neuro: Awake, Alert, Oriented, AO x 3, No Motor Deficits and Nonfocal/Grossly Intact
--- NOTE | 2024-02-08 12:09 | W.PN.PUL3 ---
Today's Communication / Plan
-
Doing well, stable on RA
No need for O2
Transitioned to Eliquis, tolerating well
Encouraged ambulation
Outpatient FU discussed, information left in chart
Discharge planning per team
Assessment
-
Patient is a 63-year-old female with previous history of left lower extremity DVT, hypertension, obesity presenting with palpitations noted the day of admission. She was diagnosed with atrial fibrillation. Of note, she had CT obtained indicating
positive large bilateral pulm emboli as well. She has lower extremity duplex showing right lower extremity DVT. We are consulted for eval.
Bilateral Pulmonary Emboli
RLE DVT
New onset Afib, palpitations
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
History of LLE DVT
HTN
PAF
Anxiety
Obesity, BMI 37
Cervical Lymph Node Excision
Cholecystectomy
Breast Biopsy
Shoulder Arthroscopy
Plan
No oxygen was needed on admission, currently saturating >90% on RA
Home O2 evaluation if needed
Prior history of lung disease is not noted
She was diagnosed with left lower extremity DVT 2 years ago and completed 3 months of Eliquis.
There was demonstrated recurrence of clot in which she was placed on a prolonged course of Eliquis she thinks about 6 months additionally.
She denies any family history of blood clots. She is not aware of any genetic history.
Denies any prior history of lung disease, she was a former smoker half a pack a day for 10 years, quit over 30 years ago.
She denies any history of snoring, has never had a sleep study.
CXR/CT obtained indicating bilateral PE
Other imaging reviewed
We discussed lifelong OAC, she is aware
Transitioned to Eliquis, tolerating well
ECHO results pending, reviewed normal function
Mildly elevated trops, mild RHS likely
Moderate PH noted, will need repeat ECHO as OP to monitor
Weight loss measures recommended
Obesity likely contributing to respiratory symptoms
Will need outpatient pulmonary evaluation in our office for PFTs and 6MWT
Reviewed with patient
Risk factors assessed for underlying sleep disordered breathing also noted, recommend outpatient PSG/sleep evaluation
Outpatient FU discussed again
Discharge planning per team
Diagnostic Data
Chest X-Ray:
CT Scan: CHEST 02/06/24- 1. Large pulmonary emboli within the right and left pulmonary arteries extending throughout the segmental pulmonary arteries. There is evidence of mild right heart strain with flattening of the interventricular septum and
slight flux of contrast into the IVC. The main pulmonary artery is mildly dilated measuring 3.6 cm suggestive of pulmonary arterial hypertension.
LE Duplex- There is nonocclusive deep venous thrombosis in the right popliteal vein
Echo: 02/07/24- Normal left ventricular size and systolic function. No regional wall motion abnormalities are seen. LV ejection fraction is 70-75%. Mild concentric left ventricular hypertrophy. Stage I diastolic dysfunction suggestive of abnormal
relaxation. Normal right ventricular size. Normal right ventricular systolic function. Structurally normal mitral valve without significant stenosis or regurgitation. Moderate aortic stenosis. Peak/mean gradients are 46/24mmHg. The valve area by
pressure half time is 1.2cm sq, using a LVOT of 2.0cm. Mild aortic regurgitation. Trace tricuspid regurgitation. Estimated pulmonary artery pressure of 60-65 mmHg. Assuming a right atrial pressure of 8 mmHg. Compared to prior study 03/10/2022
pulmonary hypertension is now noted. Aortic valve stenosis is now moderate.
PFT's:
Reports and relevant images were personally reviewed.
Total time spent on this encounter __50__ includes review of history, physical exam, medications, laboratory data, personal review of imaging, extensive review of outpatient records, discussion with care team and respiratory therapy.
Subjective Data
-
Date of Service:
Date of Service: February 08, 2024
Chief Complaint: Pulmonary Follow Up
Subjective:
Doing well, stable on RA
Offers no new complaints
Objective Data
Data Reviewed
Vital Signs / I&O / Oxygen:
Vital Signs
Temp Pulse Resp BP Pulse Ox
97.5 F 70 22 139/81 96
02/08/24 11:33 02/08/24 11:33 02/08/24 11:33 02/08/24 11:33 02/08/24 11:33
Intake and Output
02/07/24 02/08/24 02/09/24
06:59 06:59 06:59
Intake Total 1090 / 1090 118 / 118
Balance 1090 / 1090 118 / 118
SaO2 96
Physical Exam
General: Comfortable and Other (NAD)
HEENT: Normocephalic, Anicteric and Moist Mucous Membranes
Cardiovascular: S1-S2 and Regular Rhythm
Respiratory: Clear and Non-Labored Respirations
GI: Soft, Non Distended and Non Tender
Neurology: Awake, Alert, Oriented, AO x 3 and No Motor Deficits
Skin: Warm, Dry and Good Color
Labs/Micro/Reports
Lab Data
02/08/24 05:15
02/07/24 05:22
Laboratory Results
02/07/24 02/07/24 02/08/24
18:12 20:19 03:16
APTT Cancelled 63.6 H > 200 H*
02/08/24
10:11
APTT 104.5 H
--- NOTE | 2024-02-08 12:57 | W.DCSUMMARY ---
Discharge Summary
Discharge Data
Date of Admission: 02/06/24
Date of Discharge: 02/08/24
-
Pending Results: No
Hospital Course
63-year-old female past medical history of prior DVT, generalized anxiety disorder, primary hypertension, aortic stenosis, morbid obesity, who was presented to the hospital with complaints of palpitation. Patient was found to be in new onset of
atrial fibrillation. Patient did convert to normal sinus rhythm. Patient was coming shortness of breath and underwent CT chest. CT chest showed patient positive bilateral pulmonary embolism. Patient was also found to right lower extremity acute
DVT. Underwent echocardiogram no regional wall motion abnormality. EF 70-75%. Stage I diastolic dysfunction. Moderate aortic stenosis. Trace TR. PASP 60 to 65%. Per cardiology no rate control agents were started. Patient was evaluated by
cardiology, pulmonary. Patient was stable on room air. Patient remained in normal sinus rhythm. IV heparin was transitioned to p.o. Eliquis. Patient did not qualify for home oxygenation. Patient was also found to pulmonary hypertension was
recommended to follow-up with cardiology for repeat echocardiogram. Also recommend to undergo outpatient sleep study evaluation. Patient with primary hypertension which seems mildly elevated lisinopril dose was increased to 10 mg. Patient be
discharged home with recommendation to follow-up outpatient with fashion design professor, transition program manager and her primary oncologist Dr. Moffett. Per patient her prior hypercoagulable workup was found to be negative.
Discharge Plan
-
Patient Disposition: Home (Routine Discharge)
Discharge Diagnosis/Procedures: Bilateral pulmonary embolism
Right lower extremity DVT
Paroxysmal atrial fibrillation
Pulmonary hypertension
Elevated troponin
Primary hypertension
Condition: Fair
Diet: As tolerated
Activity: With assistance, As tolerated and No strenuous activity
Driving Restrictions: As prior to admission
Activity Restrictions/Additional Instructions:
Take Eliquis 10 mg (2 tabs) twice daily for additional 13 dose then one 5 mg (1 tab) twice daily
Instructions: Pulmonary embolism (blood clot in the lung), Pulmonary embolism - Discharge instructions
Referrals:
Luis Antonio Moffett DO [Active] - in two to four weeks
Charity King DO [Active] - in six weeks (PFTs)
Olvin Dasilva MD [Family Provider] - in less than 1 week
Kassi Barnett PA-C [Specified Professional Personl] - 03/05/24 9:00 am
(follow up with Dr Baron's physician surveyor instrument assistant for initial f/u visit from hospital.
will need f/u echo in 3 months which will be scheduled at time of f/u OV)
Prescriptions:
New
Eliquis 5 mg tablet
See Rx Instructions .ROUTE .COMPLEX Qty: 72 0RF
Rx Instructions:
Take Eliquis 10 mg (2 tabs) twice daily for additional 13 dose then 5 mg (1 tab) twice daily
Continued
escitalopram oxalate 20 MG tablet
20 mg PO HS
magnesium 250 MG tablet
250 mg PO DAILY
therapeutic multivitamin Tablet
1 tab PO DAILY
clotrimazole-betamethasone 1-0.05 % Cream
1 applic TOPICAL BIDPRN PRN (Reason: itching)
rosuvastatin 10 mg Tablet
10 mg PO DAILY
lurasidone 20 mg Tablet
20 mg PO HS
Changed
lisinopril 5 MG tablet
10 mg PO DAILY 30 Days Qty: 60 0RF
Discharge Orders:
Discharge Patient (As Directed); Ordered 02/08/24
Ordered By: Andrea Hawk
Discharge Date and Time
Print Language: DANISH
--- NOTE | 2024-02-08 14:25 | CM ---
CM notified of new Rx for Eliquis. I met with May to provide information about the Eliquis copay card which she is eligible for ($10 copay per refill). She was thankful for this and will use her local pharmacy for the Eliquis. No additional
needs at this time.
Plan: May has a friend who will drive her home. Discharge to home today with Eliquis copay card and no additional needs identified.
--- NOTE | 2024-02-08 14:48 | PN.CDI ---
CDI
- -
CDI:
Physician Documentation Request
Admit Date: 02/06/24 22:06
Dear Doctor Carine,
Patient admitted with new bilateral PE.
Signed ECHO conclusion states ' EF 70-75%. Normal right ventricular size. Normal right ventricular systolic function. Estimated pulmonary artery pressure of 60-65'
02/07 cardio note states 'elevated pulmonary pressures and RV strain on echo-new'
Please clarify:
PE with cor pulmonale
PE without cor pulmonale
Other
Use of terms such as suspected, likely, concern for, or probable (associated with a specific diagnosis that is being evaluated, monitored, or treated as if it exists) are acceptable and can be coded in the inpatient setting, when documented at the
time of discharge.
Thank you,
Janet Jackman RN, BSN
CDI Specialist
tiger text
Please use your independent medical judgment in providing your response.
[2024-02-08 14:59] VITALS: BP 148/79
== END 2024-02-08 16:13 | disposition home or self-care (01) | DRG 175 ==
LOC: 4 EAST ACU 22:06
PROVIDERS: Hospitalist; Physician Assistant; ADMITTING PHYSICIAN Hospitalist; ATTENDING PHYSICIAN Hospitalist; CONSULT PHYSICIAN Internal Medicine; CONSULT PHYSICIAN Internal Medicine Cardiovascular Disease; EMERGENCY PHYSICIAN Emergency Medicine; FAMILY PHYSICIAN Family Medicine
DX: I26.09 Other pulmonary embolism with acute cor pulmonale (principal); I5A Non-ischemic myocardial injury (non-traumatic); I82.431 Acute embolism and thrombosis of right popliteal vein; I48.0 Paroxysmal atrial fibrillation; I10 Essential (primary) hypertension; E66.01 Morbid (severe) obesity due to excess calories; E78.00 Pure hypercholesterolemia, unspecified; F41.1 Generalized anxiety disorder; I27.21 Secondary pulmonary arterial hypertension; I35.0 Nonrheumatic aortic (valve) stenosis; Z68.37 Body mass index [BMI] 37.0-37.9, adult; Z79.899 Other long term (current) drug therapy; Z86.718 Personal history of other venous thrombosis and embolism; Z87.891 Personal history of nicotine dependence
CPT/HCPCS: 71275; 80048; 80053; 83735; 84443; 84484; 85025; 85027; 85610; 85730; 86803; 93005; 93306; 93970; 96361; 96365; 96366; 96375; 99291; Q9967

== ENCOUNTER → 2024-04-03 11:34 | Outpatient (REF) | payer OTHER, SELFPAY | LOC: DHSLP 11:34 | PROVIDERS: ATTENDING PHYSICIAN Internal Medicine Critical Care Medicine; FAMILY PHYSICIAN Family Medicine | DX: G47.33 Obstructive sleep apnea (adult) (pediatric) (principal) | CPT/HCPCS: 95800 ==

== ENCOUNTER → 2024-05-14 09:24 | Outpatient (REF) | payer OTHER, SELFPAY | LOC: HWRCS 09:24 | PROVIDERS: ATTENDING PHYSICIAN Physician Assistant; FAMILY PHYSICIAN Family Medicine | DX: I48.0 Paroxysmal atrial fibrillation (principal); Z86.711 Personal history of pulmonary embolism; I35.0 Nonrheumatic aortic (valve) stenosis | CPT/HCPCS: 93306 ==

== ENCOUNTER 2024-05-25 06:49 | Emergency (ER) | payer OTHER, SELFPAY ==
[2024-05-25 06:51] VITALS: BP 180/115
[2024-05-25 07:07] VITALS: BP 137/69
[2024-05-25 07:15] VITALS: BMI 36.9
[2024-05-25] MEDS: NSS 1000 IV ×2 (07:15→08:37)
--- NOTE | 2024-05-25 07:15 | EDRN ---
Tee BENDER in room w/ pt
--- NOTE | 2024-05-25 07:15 | ED.GENMED ---
History of Present Illness
General
Chief Complaint: Chest Pain
Time Seen by Provider: 05/25/24 07:06
History of Present Illness
History of Present Illness:
63-year-old female with history of atrial fibrillation on Eliquis presents for evaluation of vomiting and diarrhea for the past 2 to 3 days. Vomiting improved as of this morning and she is able to tolerate p.o. fluids. Developed palpitations and
dizziness over the past 12 hours altered from the ED. Initial arrival she is noted to be in rapid A-fib however converted to normal sinus rhythm on my evaluation. Denies any abdominal pain.
Past History
Past History
ED Past Medical History: HTN, Hypercholesterolemia and Other (DVT)
ED Past Surgical History: Cholecystectomy and Gynecological
Social History
Tobacco: Non-smoker
Alcohol: Occasional
Drug: None
Personal:
Living: with family
Family History
Family History: Other (No history of gallbladder disease.)
Review of Systems
Review of Systems
Allergies reviewed?: Yes
All Other Systems: ROS reviewed and negative except as documented in HPI and ROS
Phy Exam
Physical Exam
Physical Exam:
GEN: Well appearing, NAD, WDWN
HEENT: Oral mucosa moist, no scleral icterus
Cardiac: Initially markedly tachycardic and irregular however converted to regular rate and rhythm during evaluation
Lung: No respiratory distress, no tachypnea, lungs clear to auscultation
Abdomen: Soft, grossly nontender
MSK: No gross deformity or injuries
Skin: Good color, no pallor or jaundice, no rashes
Neuro: AO x3, moves all extremities freely
Psych: Calm, cooperative
Scores
Heart Score for Chest Pain Patients
STEMI patient?: Not applicable
Course
Orders/Labs/Results
Orders:
Orders
05/25/24 06:50
ECG [Electrocardiogram (*1)] Urgent
Reason for Study: Chest Pain
EKG- Treatment ONCE
05/25/24 07:08
Cardiac Monitoring- Treatment ONCE
IV Insert/Care/Rem.- Treatment PRN
05/25/24 07:18
Complete Blood Count/With Diff Urgent
Comprehensive Metabolic Panel Urgent
Troponin I Urgent
05/25/24 07:20
0.9% Sodium Chloride 500 ml [Nss] 1,000 ml IV BOLUS
05/25/24 08:20
0.9% Sodium Chloride 1000 ml [Nss] 1,000 ml IV BOLUS
05/25/24 10:12
Diltiazem HCl [Cardizem] 20 mg IV NOW STA
Abnormal Lab Results
05/25/24
07:18
RBC 6.00 H 10^6/uL
(4.20-5.40)
Hgb 17.6 H g/dL
(12.0-16.0)
Hct 52.7 H %
(37.0-47.0)
Abs Immat Gran (auto) 0.1 H 10^3/uL
(0-0.05)
Absolute Monos (auto) 1.5 H 10^3/uL
(0.1-0.6)
Immature Gran % 1.0 H %
(0-0.5)
Lymphocytes % 20.0 L %
(20.5-51.1)
Monocytes % 16.4 H %
(1.7-9.3)
Carbon Dioxide 21 L mmol/L
(22-30)
BUN 19 H mg/dl
(7-17)
Glucose 111 H mg/dl
(70-99)
AST 40 H U/L
(14-36)
ALT 41 H U/L
(0-35)
05/25/24 07:18
05/25/24 07:18
Vital Signs
Initial and Last Documented VS:
Initial Vital Signs
Temp Pulse Resp BP Pulse Ox
98.1 F 127 16 180/115 97
05/25/24 06:51 05/25/24 06:51 05/25/24 06:51 05/25/24 06:51 05/25/24 06:51
Last Documented Vital Signs
Temp Pulse Resp BP Pulse Ox
98.1 F 75 16 127/81 93
05/25/24 06:51 05/25/24 11:00 05/25/24 11:00 05/25/24 11:00 05/25/24 11:00
MDM/Problems Addressed
MDM/Problems Addressed:
Patient reconverted into rapid A-fib throughout ED stay, she was given IV fluids and was able to tolerate p.o. fluids at time of discharge. As she remained in rapid A-fib at home attempted for IV diltiazem however she spontaneously converted back
to normal sinus rhythm was ultimately discharged in stable condition. No indication for electrical cardioversion given the patient's frequent intermittent nature of her A-fib in the setting of dehydration
*Critical Care Note
Total Time (30-74mins, 75-104mins- exclusive of procedures): Not Applicable
ED Attending Note
-
Portions of this chart may have been created with voice recognition software.� Occasional wrong word or��sound alike� substitutions may have occurred due to the inherent limitations of voice recognition software.
Discharge Plan
Departure
Patient Disposition: Home (Routine Discharge)
Date of Disposition: 05/25/24
Time of Disposition: 10:38
Patient with high blood pressure during this ER visit?: No
Discharge Problem:
Gastroenteritis, Atrial fibrillation, rapid
Instructions: Viral gastroenteritis in adults
Prescriptions:
No Action
escitalopram oxalate 20 MG tablet
20 mg PO HS
magnesium 250 MG tablet
250 mg PO DAILY
therapeutic multivitamin Tablet
1 tab PO DAILY
clotrimazole-betamethasone 1-0.05 % Cream
1 applic TOPICAL BIDPRN PRN (Reason: itching)
rosuvastatin 10 mg Tablet
10 mg PO DAILY
lurasidone 20 mg Tablet
20 mg PO HS
lisinopril 5 MG tablet
10 mg PO DAILY 30 Days Qty: 60 0RF
Eliquis 5 mg tablet
See Rx Instructions .ROUTE .COMPLEX Qty: 72 0RF
Rx Instructions:
Take Eliquis 10 mg (2 tabs) twice daily for additional 13 dose then 5 mg (1 tab) twice daily
Referrals:
Usman Garcia, DO [Family Provider] -
Interventions
Interventions:
*Risk Screen - Suicide Last Done: 05/25/24 07:15
*General Assessment Last Done: 05/25/24 07:15
*Neglect/Abuse Screening Last Done: 05/25/24 07:15
ED- Fall Risk Assessment Last Done: 05/25/24 07:15
*ED COVID-19 Vaccine History Last Done: 05/25/24 07:15
*Nursing Disposition Last Done: 05/25/24 11:02
ED- Cardiac Assessment Last Done: 05/25/24 07:15
Discharge Date and Time
Discharge Date/Time: 05/25/24 11:02
Print Language: ANGOLAN
[2024-05-25 07:26] LABS: % Basophils 0.5 % (0-2); % Eosinophils 1.3 % (0-6); % Monocytes 16.4 % (1.7-9.3); % Neutrophils 60.8 % (42.2-75.2); Absolute Basophils 0.1 10^3/uL (0-0.2); Absolute Eosinophils 0.1 10^3/uL (0-0.7); Absolute Immature Granulocytes 0.1 10^3/uL (0-0.05); Absolute Lymphocytes 1.9 10^3/uL (1.2-3.4); Absolute Monocytes 1.5 10^3/uL (0.1-0.6); Absolute Neutrophils 5.7 10^3/uL (1.4-6.5); Hematocrit 52.7 % (37.0-47.0); Hemoglobin 17.6 g/dL (12.0-16.0); Mean Corp Hgb Conc. 33.4 g/dL (33.0-37.0); Mean Corpuscular Hgb 29.3 pg (27.0-31.0); Mean Corpuscular Volume 87.8 fL (81.0-99.0); Mean Platelet Volume 10.3 fL (7.4-10.4); Nucleated Red Blood Cells % 0 %; Platelet Count 240 10^3/uL (130-400); Red Cell Dist. Width 13.3 % (11.5-14.5); White Blood Cell Count 9.4 10^3/uL (4.8-10.8)
[2024-05-25 07:42] LABS: ALT (SGPT) 41 U/L (0-35); AST (SGOT) 40 U/L (14-36); Albumin 4.4 g/dl (3.5-5.0); Alkaline Phosphatase 74 U/L (38-126); Blood Urea Nitrogen 19 mg/dl (7-17); Calcium 9.1 mg/dl (8.4-10.2); Carbon Dioxide 21 mmol/L (22-30); Chloride 103 mmol/L (98-107); Glucose 111 mg/dl (70-99); Potassium 3.8 mmol/L (3.5-5.1); Sodium 139 mmol/L (135-145); Total Bilirubin 0.5 mg/dl (0.2-1.3); Total Protein 7.2 g/dl (6.3-8.2); eGFR > 60.00
[2024-05-25 07:53] LABS: Troponin I 0.032 ng/ml
[2024-05-25 08:04] VITALS: BP 145/93
--- NOTE | 2024-05-25 08:35 | EDRN ---
Tee BENDER in room w/pt
[2024-05-25 09:00] VITALS: BP 131/98
[2024-05-25 10:00] VITALS: BP 137/91
--- NOTE | 2024-05-25 10:02 | EDRN ---
Tee Sung PA in room w/ pt at this time.
--- NOTE | 2024-05-25 10:36 | EDRN ---
Pt having crackers and water. Tee BENDER informed that pt in NSRat 75 bpm so derik held at this time and he okayed the crackers and water.
[2024-05-25 11:00] VITALS: BP 127/81
--- NOTE | 2024-05-25 11:00 | EDRN ---
Pt tolerated crackers and water. Pt had been in NSR w/ rate 75 since denise 10:10.
== END 2024-05-25 11:02 | disposition home or self-care (01) ==
LOC: EMR 06:49
PROVIDERS: EMERGENCY PHYSICIAN Emergency Medicine; FAMILY PHYSICIAN Family Medicine
DX: K52.9 Noninfective gastroenteritis and colitis, unspecified (principal); I48.91 Unspecified atrial fibrillation; E86.0 Dehydration; I10 Essential (primary) hypertension; E78.00 Pure hypercholesterolemia, unspecified; Z86.718 Personal history of other venous thrombosis and embolism; Z79.01 Long term (current) use of anticoagulants
CPT/HCPCS: 99284; 96360; 96361; 80053; 84484; 85025; 93005

== ENCOUNTER → 2024-06-23 11:17 | Outpatient (REF) | payer OTHER, SELFPAY | LOC: WDC 11:17 | PROVIDERS: ATTENDING PHYSICIAN Family Medicine | DX: Z12.31 Encounter for screening mammogram for malignant neoplasm of breast (principal) | CPT/HCPCS: 77063; 77067 ==

== ENCOUNTER 2025-03-10 06:28 | Outpatient (RCR) | payer OTHER, SELFPAY | END 2025-03-10 23:59 | disposition home or self-care (01) | LOC: RPT 06:28 | PROVIDERS: ATTENDING PHYSICIAN Student in an Organized Health Care Education/Training Program; FAMILY PHYSICIAN Family Medicine | DX: M65.20 Calcific tendinitis, unspecified site (principal); M25.511 Pain in right shoulder; Z73.6 Limitation of activities due to disability | CPT/HCPCS: 97110; 97162 ==

== ENCOUNTER 2025-03-16 09:14 | Outpatient (RCR) | payer OTHER, SELFPAY | END 2025-03-16 23:59 | disposition home or self-care (01) | LOC: RPT 09:14 | PROVIDERS: ATTENDING PHYSICIAN Student in an Organized Health Care Education/Training Program; FAMILY PHYSICIAN Family Medicine | DX: M25.511 Pain in right shoulder (principal); M65.20 Calcific tendinitis, unspecified site; Z73.6 Limitation of activities due to disability | CPT/HCPCS: 97110 ==

== ENCOUNTER 2025-03-19 01:56 | Inpatient (IN) | payer OTHER, SELFPAY ==
[2025-03-18 19:12] VITALS: BP 171/108
[2025-03-18 19:14] VITALS: BP 166/95
[2025-03-18 19:35] LABS: Hematocrit 47.2 % (37.0-47.0); Hemoglobin 15.9 g/dL (12.0-16.0); Mean Corp Hgb Conc. 33.7 g/dL (33.0-37.0); Mean Corpuscular Volume 88.7 fL (81.0-99.0); Nucleated Red Blood Cells % 0 %; Platelet Count 277 10^3/uL (130-400); Red Cell Dist. Width 13.8 % (11.5-14.5); Urine Character Clear (Clear)
[2025-03-18 19:40] LABS: Urine Red Blood Cell 0-2 /HPF (0-2); Urine White Cell 0-2 /HPF (0-5)
[2025-03-18 19:58] LABS: ALT (SGPT) 39 U/L (0-35); AST (SGOT) 32 U/L (14-36); Albumin 4.4 g/dl (3.5-5.0); Alkaline Phosphatase 87 U/L (38-126); Blood Urea Nitrogen 19 mg/dl (7-17); Calcium 9.5 mg/dl (8.4-10.2); Carbon Dioxide 26 mmol/L (22-30); Chloride 106 mmol/L (98-107); Glucose 175 mg/dl (70-99); Potassium 4.2 mmol/L (3.5-5.1); Sodium 140 mmol/L (135-145); Total Protein 7.4 g/dl (6.3-8.2); eGFR > 60.00
[2025-03-18 20:11] LABS: Troponin I < 0.012 ng/ml
[2025-03-18] MEDS: NSS 1000 IV (23:36)
[2025-03-18 23:37] VITALS: BP 139/65
--- NOTE | 2025-03-18 23:42 | ED.GENMED ---
History of Present Illness
General
Chief Complaint: Cardiac Symptoms
Source: patient and previous hospital records (Previous hospitalization January 2024 for new onset A-fib with RVR also found to have right lower extremity DVT, bilateral PEs. Started on Eliquis at that time)
Exam Limitations: none
Time Seen by Provider: 03/18/25 22:38
Nursing documentation reviewed up to this point in time: agreed with
History of Present Illness
History of Present Illness:
This is a 64-year-old woman with history of hypertension, hyperlipidemia, chronic heart palpitations, DVT, migraine headaches, anxiety/depression. Hospitalized here January 2024 with complaints of palpitations associated with shortness of breath,
found to be in new onset A-fib with RVR. Also found to have right lower extremity DVT as well as bilateral PEs. Started on Eliquis at that time and has been compliant with twice daily dosing. Echocardiogram during that hospitalization showed
moderate AAS, EF of 70 to 75%. Pulmonary hypertension. A-fib converted spontaneously, she has not required medications for rate control. She does note frequent recurrent episodes of A-fib which she notes as fluttering in her chest and mildly
elevated heart rate and also continues with intermittent palpitations, feeling that her heart is beating somewhat hard that is different from her symptoms with A-fib. Since yesterday she has had intermittent episodes of palpitations quite different
from A-fib and her usual palpitations, heart has been beating somewhat hard as well as associated with substernal chest pain. Palpitations have not resolved with oral intake, have not resolved with brief breath-holding which usually is helpful for
her palpitations.
She has not had a cough, no shortness of breath, no leg pain or swelling. No fever no chills.
She has been suffering with right shoulder calcific tendinitis, following with orthopedics and underwent right shoulder steroid injection a few weeks ago and completed a prednisone taper 5 days ago. She notes moderate improvement in right shoulder
tendinitis.
She also notes some significant ongoing stress as her has been chronically ill after traumatic brain injury a number of years ago, currently resides in personal care setting. His health has been declining with onset of Parkinson's and
dementia.
Past History
Past History
ED Past Medical History: Arrthythmia (Atrial fibrillation), HTN, Hypercholesterolemia, Other (DVT, bilateral PE January 2024. Started on Eliquis) and Other (DVT)
ED Past Surgical History: Cholecystectomy and Gynecological
Social History
Tobacco: Non-smoker
Alcohol: Occasional
Drug: None
Personal:
Living: alone ( resides in personal-care facility)
Employment: Retired
Family History
Family History: Other (No history of gallbladder disease.)
Phy Exam
Physical Exam
Physical Exam:
GENERAL: 64-year-old woman appears her stated age, awake and alert, pleasant, appears in no acute distress. Easily communicative.
EYE: anicteric
NECK: Supple, nontender, no meningismus, no significant adenopathy.
ENT: posterior pharynx is clear, oral mucosa is moist. TM clear b/l, nares patent.
CARDIAC: Irregularly irregular at a rate of 100-106
LUNGS: Clear breath sounds bilaterally, no acute respiratory distress, no wheezes/rales/rhonchi
ABDOMEN: Soft, nondistended, without focal tenderness, normoactive BS.
NEUROLOGICAL: Alert and oriented x3, no focal neuro deficits.
SKIN: Warm and dry, normal color, skin intact. No rash.
MUSCULOSKELETAL: No C/C/E. peripheral pulses are full and equal b/l. No palpable tenderness.
PSYCH: Normal and appropriate interaction.
Course
Orders/Labs/Results
Orders:
Orders
03/18/25 19:15
Electrocardiogram (*1) Urgent
Reason for Study: Chest Pain
EKG- Treatment ONCE
IV Insert/Care/Rem.- Treatment PRN
03/18/25 19:25
Complete Blood Count/With Diff Urgent
Comprehensive Metabolic Panel Urgent
TSH Reflex To Free T4 Urgent
Comment: ADD ON
Troponin I Urgent
Urinalysis Reflex To Culture Urgent
Date Specimen was Collected: 03/18/25
Time Specimen was Collected: 19:15
Urine Microscopic Reflex Cult Urgent
Urine Culture Urgent
CHOCO Source: U
Specimen Description:
Date Specimen was Collected: 03/18/25
Time Specimen was Collected: 19:15
03/18/25 23:20
0.9% Sodium Chloride 1000 ml [Nss] 1,000 ml IV BOLUS
Metoprolol [Lopressor] 5 mg IV NOW STA
03/18/25 23:21
CT Chest PE Study Urgent
Comment:
Reason For Exam: CP, palpitations, hx of DVT/PE 01/2024
EKG- Treatment ONCE
03/18/25 23:36
Troponin I Urgent
03/19/25 00:46
D-Dimer Urgent
PTT Urgent
03/19/25 01:43
Admit/Transfer Patient As Directed
Co-Sign Provider:
Level of Care: Inpatient admission
Assign to:: IVU
Physician / Group: [facility]
Diagnosis: rapid atrial fibrillation
Reason for Hospitalization: rapid atrial fibrillation
Expected length of stay greater than two midnights?: Yes
ELOS- Estimated Length of Stay in days: 2
I certify the patient meets the requirements for IP care: Yes
03/19/25 01:44
Code Status As Directed
Resuscitation Status: Full Code
03/19/25 01:45
Diltiazem 125 mg/125 ml Nss [Cardizem] 125 mg in 125 ml IV PER PROTOCOL
Initial dose in mg/hr, then titrate:: 5
Titrate to keep:: Heart rate 80-100 bpm
Titrate by mg/hr:: 5 mg/hr
Frequency of titrations (minutes):: 15
Maximum dose in mg/hr:: 15
03/19/25 01:50
Heparin Protocol- PTT Orders As Directed
PTT per Heparin protocol: -Obtain CBC and baseline PTT - if not already collected.
-Obtain PTT 6 hours from start of infusion. Then, every 6 hours until 2 consecutive
PTT's are therapeutic. Then, PTT Daily.
-With each rate change, obtain PTT every 6 hours until 2 consecutive PTT's are
therapeutic. Then, PTT Daily.
Notify MD As Directed
Notify physician if: PTT is greater than or equal to 200.
03/19/25 02:00
Heparin 48383 Units/250 ml 25,000 units in 250 ml IV PER PROTOCOL
Weight to be used for heparin protocol in kilograms (kg):: 102.8
Protocol:: DVT/PE
PTT Goal Range to be used:: PTT 73 to 111 seconds
Order type:: Initial
INITIAL Infusion Dose (UNITS/KG/hr) & then follow protocol:: 18 units/kg/hr
Infusion Dose in UNITS/hr & then follow protocol (UNITS/hr):: 1,900
INFUSION RATE in mL/hr & then follow protocol (mL/hr):: 19
For DVT/PE algorithm, re-bolus for low PTT?: Yes
PTT less than or equal to 64 seconds:: Re-bolus 80 units/kg (max 10,000units). Increase by 400 units/hr
(+ 4mL/hr)
PTT 64.1 to 72.9 seconds:: Re-bolus 40 units/kg (max 5,000 units). Increase by 200 units/hr
(+ 2mL/hr)
PTT 73 to 111 seconds:: Target Range. No change in rate.
PTT 111.1 to 130.9 seconds:: Decrease rate by 200 units/hr (- 2 mL/hr)
PTT 131 to 199.9 seconds:: HOLD for 1 hr. Then decrease by 300 units/hr (- 3mL/hr)
PTT greater than or equal to 200 seconds:: HOLD for 2 hrs & Notify Provider. Then decrease by 400 units/hr
(- 4mL/hr)
Lab follow-up:: Each change, PTT q6h until 2 consecutive are therapeutic. Then
PTT daily.
03/19/25 02:59
Diltiazem 125 mg/125 ml Nss [Cardizem] 125 mg in 125 ml IV PER PROTOCOL
Currently infusing. Continue current dose and titrate:: Yes
Titrate to keep:: Heart rate 80-100 bpm
Titrate by mg/hr:: 5 mg/hr
Frequency of titrations (minutes):: 15
Maximum dose in mg/hr:: 15
03/19/25 02:59
Echo 2D MMode Color/Doppler Routine
Reason for Study: chest pain
CARDIOLOGY CONSULT Routine
Consulting Provider: Reji Baron
Was physician already notified: No
Reason for consult: AFIB RVR, elevated troponin
Consult Notification Routine
Specialty to Notify: Cardiology
Consult Notification Routine
Specialty to Notify: Pulmonary
PULMONARY CONSULT Routine
Consulting Provider: Meliton Garcia
Was physician already notified: No
Reason for consult: Persistent PE now chronic on AC w/ apixaban. Here for afib/chest pain
VTE Contraindication Routine
VTE Mechanical Device Contraindication: Medical Contraindication
Pharmocologic Contraindication: Medical Contraindication
Activity As Directed
Activity Level: With Assistance
ECG as needed As Directed
ECG as needed for:: Chest Pain
Additional Instructions:: with chest pain x 2 episodes.
INT (Intravenous Needle Therapy) As Directed
Comment: maintain peripheral IV access
Intake/ Output As Directed
Frequency: Per unit guidelines
Vital Signs As Directed
Frequency: q4h
Weight As Directed
Frequency: Daily
03/19/25 03:47
Basic Metabolic Panel IN AM
Cardiovascular Evaluation IN AM
Complete Blood Count/No Diff IN AM
Glycohemoglobin (HgbA1c) IN AM
NT-proBNP IN AM
Troponin I Q6H
Comment: at admit & Q3H for 3 total including ED draws, obtain ECG with each level
03/19/25 Breakfast
Cholesterol Lowering
At Your Request: Full Participation
Cholesterol Lowering: Sodium, 2 Gram
03/19/25 08:00
Lisinopril [Zestril] 10 mg PO DAILY
Magnesium Oxide 200 mg PO DAILY
Rosuvastatin Calcium [Crestor] 10 mg PO DAILY
03/19/25 10:30
Troponin I Q6H
Comment: at admit & Q3H for 3 total including ED draws, obtain ECG with each level
03/19/25 16:30
Troponin I Q6H
Comment: at admit & Q3H for 3 total including ED draws, obtain ECG with each level
03/19/25 22:00
Escitalopram Oxalate [Lexapro] 20 mg PO HS
Lurasidone HCl [Latuda] 20 mg PO HS
03/21/25 06:00
Complete Blood Count/No Diff Q2D
Comment: Notify MD if platelet count is <130,000 or decreases by 50% from baseline
03/23/25 06:00
Complete Blood Count/No Diff Q2D
Comment: Notify MD if platelet count is <130,000 or decreases by 50% from baseline
03/25/25 06:00
Complete Blood Count/No Diff Q2D
Comment: Notify MD if platelet count is <130,000 or decreases by 50% from baseline
03/27/25 06:00
Complete Blood Count/No Diff Q2D
Comment: Notify MD if platelet count is <130,000 or decreases by 50% from baseline
03/29/25 06:00
Complete Blood Count/No Diff Q2D
Comment: Notify MD if platelet count is <130,000 or decreases by 50% from baseline
03/31/25 06:00
Complete Blood Count/No Diff Q2D
Comment: Notify MD if platelet count is <130,000 or decreases by 50% from baseline
04/02/25 06:00
Complete Blood Count/No Diff Q2D
Comment: Notify MD if platelet count is <130,000 or decreases by 50% from baseline
04/04/25 06:00
Complete Blood Count/No Diff Q2D
Comment: Notify MD if platelet count is <130,000 or decreases by 50% from baseline
Abnormal Lab Results
03/18/25 03/18/25
23:36
WBC 11.2 H 10^3/uL
(4.8-10.8)
Hct 47.2 H %
(37.0-47.0)
Abs Immat Gran (auto) 0.1 H 10^3/uL
(0-0.05)
Absolute Neuts (auto) 7.2 H 10^3/uL
(1.4-6.5)
Absolute Monos (auto) 1.0 H 10^3/uL
(0.1-0.6)
Immature Gran % 0.9 H %
(0-0.5)
BUN 19 H mg/dl
(7-17)
Glucose 175 H mg/dl
(70-99)
ALT 39 H U/L
(0-35)
Troponin I 0.039 H* D ng/ml
Urine Bacteria (Reflex) Many A
(Negative)
Urine Albumin (Reflex) 2+ A
(Neg - Trace)
03/19/25 01:50
03/18/25 19:25
Vital Signs
Initial and Last Documented VS:
Initial Vital Signs
Temp Pulse Resp BP Pulse Ox
98.7 F 112 20 171/108 94
03/18/25 19:12 03/18/25 19:12 03/18/25 19:12 03/18/25 19:12 03/18/25 19:12
Last Documented Vital Signs
Temp Pulse Resp BP Pulse Ox
98.2 F 70 16 136/72 93
03/19/25 03:47 03/19/25 05:00 03/19/25 03:47 03/19/25 03:47 03/19/25 03:47
MDM/Problems Addressed
Differential Diagnosis Includes:
Concern for ACS
Tachyarrhythmia versus exacerbation of A-fib
Concern for recurrent PE
GERD
Electrolyte abnormality
Thyroid disorder
MDM/Problems Addressed:
Heart palpitations
Chest pain
EKG shows atrial fibrillation with controlled ventricular response at 98. No acute ST-T wave abnormalities and overall similar and unchanged from previous EKG May 2015.
Labs thus far are unremarkable save for random glucose of 175. Patient ate dinner just prior to arrival she also recently completed a course of oral steroids and recently received steroid injection to her right shoulder which can certainly elevate
blood sugar. She has history of impaired fasting glucose with reported hemoglobin A1c at 'prediabetes level'
Troponin is negative.
Due to history of DVT x 2 previous episodes as well as history of PE, must consider recurrent PE/failure of Eliquis thus we will check CT of the chest/PE study.
Monitor continues to show atrial fibrillation with heart rate around 100. Mildly to moderately elevated blood pressure. Will give an IV dose of metoprolol.
Patient currently maintained on lisinopril only for hypertension.
Will add thyroid function to blood in the lab. Less likely a thyroid issue, patient states thyroid function has been normal on previous testing.
Chronic conditions affecting care: HTN, Arrhythmia (Atrial fibrillation) and Other (History of DVT/PEs)
*Radiology
Radiology exam reviewed: radiology read reviewed
*Pulse Oximetry
SaO2: 95
Oxygen Mode of Delivery: Room air
Patient hypoxic: no
*EKG
Interpreted by ED Provider?: Yes
Interpretation: abnormal
Comparison EKG: no changes
Rate: tachycardiac
Rhythm: a-fib
[place]: normal axis
Interval: normal QT interval
QRS Pattern: normal QRS
Ischemia: non-specific ST changes
*Matlab Developer Interpretation
Rate: normal and tachycardiac
Interpretation: abnormal
Rhythm: a-fib
*Critical Care Note
Total Time (30-74mins, 75-104mins- exclusive of procedures): Not Applicable
Update Note
Update Note:
Repeat troponin has trended up to 0.039.
CT of the chest shows a thickened linear pulmonary artery embolus in the distal main right pulmonary artery extending into the right lower lobe pulmonary artery, overall decreased since previous exam January 2024. This is most likely a chronic
nonocclusive linear pulmonary embolus that has partially recannulized, improved from previous but unable to exclude acute embolus.
Due to uptrend in troponin must also consider acute coronary syndrome.
Monitor continues to show A-fib with RVR. Thus far no improvement with metoprolol. Will likely require further medication for rate control.
Will plan to admit to hospitalist service, continue to trend troponin. Will check D-dimer as this may help with consideration of acute versus chronic PE.
ED Attending Note
-
Portions of this chart may have been created with voice recognition software.� Occasional wrong word or��sound alike� substitutions may have occurred due to the inherent limitations of voice recognition software.
Discharge Plan
Departure
Patient Disposition: Admit
Date of Disposition: 03/19/25
Time of Disposition: 00:57
Admit to: Telemetry
Admit to doctor: [facility]
Presentation/result/management discussed w/ accepting MD/DO: Hospitalist
Condition: Fair
Discharge Problem:
chest pain r/o ACS, PE, acute vs chronic, Atrial fibrillation with RVR
Interventions
Interventions:
*Risk Screen - Suicide Last Done: 03/18/25 19:12
*Neglect/Abuse Screening Last Done: 03/18/25 19:12
*ED COVID-19 Vaccine History Last Done: 03/19/25 02:54
*Nursing Disposition Last Done: 03/19/25 02:49
ED- Pulmonary Assessment Last Done: 03/18/25 23:15
ED- Cardiac Assessment Last Done: 03/18/25 23:15
Discharge Date and Time
Discharge Date/Time: 03/19/25 02:50
[2025-03-19] VITALS (11 sets, daily range): BP systolic 135–155; BP diastolic 67–104; PULSE 58; BMI 40.1; BMI 40.0
[2025-03-19] MEDS: LOPRESSOR 5 MG IV (00:08)
[2025-03-19 00:23] LABS: Troponin I 0.039 ng/ml
--- NOTE | 2025-03-19 01:19 | HPS.HSE ---
Family Physician
-
Family Physician: Usman Garcia
Chief Complaint
-
Chest pain
History of Present Illness
This is a 64-year-old female with past medical history significant for atrial fibrillation, PE, DVT, hyperlipidemia and hypertension who presents to the emergency department with complaints of palpitations since 3 PM on March 17 as well as more of
a chest pressure today with tachycardia.
Patient reported that she started noticing palpitations about 1-1/2 days ago. She usually never notices palpitations although she has known atrial fibrillation. She states that intermittently she goes in and out of this rhythm because she can feel
the palpitations. She denies feeling dizzy or lightheaded. She denies any nausea vomiting or diaphoresis. She initially did not have any discomfort. She reports also having a history of paroxysmal supraventricular tachycardia since adolescence.
She stated that she started having episodes of tachycardia this afternoon prior to coming to the ED. When she had the tachycardia she reports a chest pressure that goes across her chest and lasts for the duration of the tachycardia episode. It has
been intermittent but she states she has been free of the tachycardia episodes since she arrived in the emergency department. She denies any associated nausea or vomiting. She denies diaphoresis. Patient denies any recent fluid losses. She
denies any recent upper respiratory or motor infection.
In the emergency department, the patient was afebrile, blood pressure was 143/104 with a pulse rate of 111. Oxygen saturation was 98%. ECG shows atrial fibrillation/atrial flutter with rates of 97-1 07. Initial troponin was less than 0.012,
repeat troponin was 0.039.
White count was 11.2 hemoglobin and platelets were normal. Electrolytes BUN/creatinine were normal. Glucose was 175.
A repeat CT angiogram showed thickened linear pulmonary artery embolus in the distal main right pulmonary artery extending into the right lower lobe pulmonary artery, overall decrease since prior exam. Most likely this is a chronic nonocclusive
linear pulmonary embolus that has partially recanalized and is most likely improved since prior exam rather than any new pulmonary embolus. Interval resolution of previously noted pulmonary embolus with possible tiny thin residual web in the left
lower lobe.. Similar mild cardiomegaly. Moderate coronary artery calcification.
Medical History
Past Medical History
Past Medical History: Reports Other
Additional Past Medical History:
Atrial fibrillation
Hypertension
Mild - Moderate Aortic Stenosis
LLE DVT
PE
Anxiety
Obesity
Past Surgical History: Reports Other
Additional Past Surgical History:
Cervical Lymph Node Excision
Cholecystectomy
Breast Biopsy
Shoulder Arthroscopy
Social History
Tobacco: Non-smoker
Alcohol: None
Drug: None
Family History
Family History: Not pertinent
Allergies / Home Medications
Allergies reflects when Allergies were last updated in [facility].
Home Medications with original date entered in [facility]
Allergy/Medication List:
Allergies
Allergy/AdvReac Type Severity Reaction Status Date / Time
No Known Allergies Allergy Verified 03/18/25 19:12
Home Medications
escitalopram oxalate 20 mg tablet 20 mg PO HS Depression 04/15/10
magnesium 250 mg tablet 250 mg PO DAILY Electrolyte Repletion 10/27/11
clotrimazole-betamethasone 1 %-0.05 % topical cream 1 applic topical BIDPRN PRN itching 02/06/24
lurasidone 20 mg tablet 20 mg PO HS Mental Health/Anxiety 02/06/24
rosuvastatin 10 mg tablet 10 mg PO DAILY High Cholesterol 02/06/24
therapeutic multivitamin 1 tab PO DAILY Supplement 02/06/24
apixaban 5 mg tablet (Eliquis) See Rx Instructions .Route .COMPLEX #72 tabs 02/08/24
lisinopril 5 mg tablet 10 mg (2 x 5 mg) PO DAILY Blood Pressure 30 days #60 tabs 02/08/24
Review of Systems
-
Constitutional: Reports No Symptoms
EENT: Reports No Symptoms
Respiratory: Reports No Symptoms
Cardiac: Reports Chest Pain and Palpitations
Abdomen/GI: Reports No Symptoms
: Reports No Symptoms
Musculoskeletal: Reports No Symptoms
Skin: Reports No Symptoms
Neurological: Reports No Symptoms
Endocrine: Reports No Symptoms
Hematologic/Lymphatic: Reports No Symptoms
Psych: Reports No Symptoms
Physical Exam
Vital Signs
Vital Signs
Temp Pulse Resp BP Pulse Ox
98.7 F 111 10 143/104 96
03/18/25 19:12 03/19/25 00:30 03/19/25 00:30 03/19/25 00:08 03/19/25 00:30
Physical Exam
General: Well Developed, Well Nourished and No Apparent Distress
HEENT: NormoCephalic, Moist mucous membranes and Atraumatic
Respiratory: Clear
Cardiac: S1/S2 and Irregular Rhythm; No Murmur or Rub
GI: Soft, Non Tender, Non Distended and Normal Bowel Sounds; No Organomegaly
Rectal: Deferred by Provider
Musculoskeletal: No Clubbing, No Cyanosis and No Edema
Skin: No Rash
Neuro: AO x 3 and Nonfocal/grossly intact
Laboratory Results
-
03/18/25 19:25
03/18/25 19:25
Laboratory Results
Total Bilirubin 0.5 mg/dl (0.2-1.3) 03/18/25 19:25
AST 32 U/L (14-36) 03/18/25 19:25
ALT 39 U/L (0-35) H 03/18/25 19:25
Alkaline Phosphatase 87 U/L (38-126) 03/18/25 19:25
Troponin I 0.039 ng/ml H* D 03/18/25 23:36
Data Reviewed
-
CT Scan: Report Reviewed by me
Medical Tests (Nuc Med, Echo, EKG etc): Image Personally Visualized and interpreted
Lab Data: Labs Reviewed by me
Old Records: Reviewed
Impression/Plan
-
IMPRESSION:
64-year-old with history of atrial fibrillation, pulmonary embolism who presents with the episodes of palpitations, tachycardia and chest pain. Patient ECG with atrial fibrillation rates in the low 110s but is symptomatic due to palpitations. She
has a second troponin that was elevated to 0.04. She is currently chest pain-free. Labs are otherwise unremarkable. She is status post IV fluids and a dose of IV metoprolol in the ED without much improvement.
PLAN:
Atrial fibrillation -patient is symptomatic probably due to palpitations but also due to intermittent episodes of tachycardia. Cannot determine if chest pain is tachycardia related but patient feels so. She is currently chest pain-free and rates
in the 110s.
-Admit to IVU
-Will start patients on IV diltiazem for rate control and possible medical cardioversion
-tsh wnl
-Check echocardiogram
-Patient possible candidate for ablation given significant subjective symptoms from the atrial fibrillation despite not being tachycardic
-Will continue anticoagulation with heparin DVT protocol for now, no bolus, last dose of apixaban was 6 hours previous.
Chest pain -possible demand related ischemia versus NSTEMI. ECG without ischemic findings.
-Rate control as above
-IV heparin for now
-Continue statin, check A1c and lipid panel
-Echo in a.m.
-Possible noninvasive testing per cardiology
-Cardiology consultation
Pulmonary embolism -significant residual pulmonary embolism despite over 1 year of anticoagulation. No evidence of new or additional disease, likely improving moderately.
-IV heparin
-Pulmonary consultation
DVT prophylaxis�on heparin drip
CODE STATUS�full code
[2025-03-19 01:22] LABS: APTT 27.7 Sec (23.4-35.0)
[2025-03-19 01:24] LABS: D-Dimer 0.32 ug/mlFEU (0.00-0.50)
[2025-03-19] MEDS: CARDIZEM 125 IV (02:03)
[2025-03-19] MEDS: HEPARIN 25000 UNITS/250 ML IV ×2 (02:08→17:03)
[2025-03-19 04:20] LABS: Hematocrit 43.8 % (37.0-47.0); Hemoglobin 14.5 g/dL (12.0-16.0); Mean Corp Hgb Conc. 33.1 g/dL (33.0-37.0); Mean Corpuscular Volume 89.4 fL (81.0-99.0); Platelet Count 262 10^3/uL (130-400); Red Cell Dist. Width 13.8 % (11.5-14.5)
[2025-03-19 04:46] LABS: Blood Urea Nitrogen 22 mg/dl (7-17); Calcium 9.1 mg/dl (8.4-10.2); Carbon Dioxide 25 mmol/L (22-30); Chloride 109 mmol/L (98-107); Estimated Creatinine Clearance 93 ml/min; Glucose 113 mg/dl (70-99); HDL Cholesterol 54 mg/dl; LDL Cholesterol, Calculated 83 mg/dl; Potassium 4.5 mmol/L (3.5-5.1); Sodium 140 mmol/L (135-145); Very Low Density Lipoprotein 17 mg/dl (0-30); eGFR > 60.00
[2025-03-19 04:52] LABS: Troponin I 0.023 ng/ml
--- NOTE | 2025-03-19 06:00 | PTCARENOTE ---
Rec'd pt as an admission from ED. Pt AAO*3, VSS, and SR/afib on TELE on monitor. On admission to IVU pt was noted to be in SR and EKG confirmed. PT reported palpitations and Hr noted to be in 110 and rhythm afib. PT then converted back to SR in
70's. Pt with cardizem and heparin infusing as ordered. Pt oriented to unit and now resting with call acosta in reach. See MAR and flowchart for full pt care and assessment.
[2025-03-19] MEDS: CRESTOR 10 MG PO (07:51)
[2025-03-19] MEDS: MAGNESIUM OXIDE 200 MG PO (07:51)
[2025-03-19] MEDS: ZESTRIL 10 MG PO (07:51)
[2025-03-19 08:42] LABS: Glycohemoglobin (HgbA1c) 6.2 % (4.0-5.6)
[2025-03-19 09:08] LABS: APTT 133.0 Sec (23.4-35.0)
--- NOTE | 2025-03-19 09:17 | CON.PUL ---
Consultation
Consultation Request
Date/Time Consultation Requested: 03/19/25
Date/Time Consultation Performed: 03/19/25
Performing Provider: Fernando
Reason for Consultation: PE
Medical History
-
History of Present Illness:
This is a 64-year-old female with past medical history significant for atrial fibrillation, PE/DVT on lifelong OAC, hyperlipidemia and hypertension who presents to the emergency department with complaints of palpitations, chest pressure, and
tachycardia. In the emergency department, the patient was afebrile, blood pressure was 143/104 with a pulse rate of 111. Oxygen saturation was 98%. ECG shows atrial fibrillation/atrial flutter with rates of 97-107. Initial troponin was less than
0.012, repeat troponin was 0.039. A CT angiogram showed thickened linear pulmonary artery embolus in the distal main right pulmonary artery extending into the right lower lobe pulmonary artery, overall decreased since prior exam. Most likely this
is a chronic nonocclusive linear pulmonary embolus that has partially recanalized and is most likely improved since prior exam rather than any new pulmonary embolus. Interval resolution of previously noted pulmonary embolus with possible tiny thin
residual web in the left lower lobe. Similar mild cardiomegaly. Moderate coronary artery calcification. This is compared to prior CT on 02/06/24.
Past Medical History
Past Medical History: Other (see list below)
Social History
Tobacco: Non-smoker
Alcohol: None
Drug: None
Family History
Family History: Reviewed & Not Pertinent
Allergies / Home Medications
Allergies
Allergy/AdvReac Type Severity Reaction Status Date / Time
No Known Allergies Allergy Verified 03/18/25 19:12
Home Medications
�Medication �Instructions �Recorded �Confirmed �Last Taken �Type
escitalopram oxalate 20 mg tablet 20 mg PO HS Depression 04/15/10 03/19/25 03/18/25 18:00 History
magnesium 250 mg tablet 250 mg PO DAILY Electrolyte 10/27/11 03/19/25 03/18/25 08:00 History
Repletion
clotrimazole-betamethasone 1 1 applic topical BIDPRN PRN itching 02/06/24 03/19/25 03/18/25 08:00 History
%-0.05 % topical cream
lurasidone 20 mg tablet 20 mg PO HS Mental Health/Anxiety 02/06/24 03/19/25 03/18/25 18:00 History
rosuvastatin 10 mg tablet 10 mg PO DAILY High Cholesterol 02/06/24 03/19/25 03/18/25 08:00 History
therapeutic multivitamin 1 tab PO DAILY Supplement 02/06/24 03/19/25 03/18/25 08:00 History
lisinopril 5 mg tablet 10 mg (2 x 5 mg) PO DAILY Blood 02/08/24 03/19/25 03/18/25 08:00 Rx
Pressure 30 days #60 tabs
apixaban 5 mg tablet (Eliquis) 5 mg PO BID 03/19/25 03/19/25 03/18/25 18:00 History
Review of Systems
-
History Source: Patient
All other systems: Negative unless noted
Vitals / Labs / Diagnostic Testing
Vital Signs
Temp Pulse Resp BP Pulse Ox
98.3 F 65 16 137/71 94
03/19/25 07:52 03/19/25 08:00 03/19/25 07:52 03/19/25 07:58 03/19/25 07:52
Lab Data
03/19/25 03:47
03/19/25 03:47
Laboratory Results
03/19/25 03/19/25
00:46 08:46
APTT 27.7 133.0 H
Diagnostic Testing:
Physical Exam
-
HEENT: Normocephalic, Anicteric and Moist Mucous Membranes
Cardiovascular: S1/S2 and Regular Rhythm
Respiratory: Clear and Non-Labored Respirations
GI: Soft, Non Distended and Non Tender
Neurology: Awake, Alert, Oriented and No Motor Deficits
Skin: Warm, Dry and Good Color
General: Comfortable and Other (NAD)
Assessment
-
This is a 64-year-old female with past medical history significant for atrial fibrillation, PE/DVT on lifelong OAC, hyperlipidemia and hypertension who presents to the emergency department with complaints of palpitations, chest pressure, and
tachycardia. In the emergency department, the patient was afebrile, blood pressure was 143/104 with a pulse rate of 111. Oxygen saturation was 98%. ECG shows atrial fibrillation/atrial flutter with rates of 97-107. Initial troponin was less than
0.012, repeat troponin was 0.039. A CT angiogram showed thickened linear pulmonary artery embolus in the distal main right pulmonary artery extending into the right lower lobe pulmonary artery, overall decreased since prior exam. Most likely this
is a chronic nonocclusive linear pulmonary embolus that has partially recanalized and is most likely improved since prior exam rather than any new pulmonary embolus. Interval resolution of previously noted pulmonary embolus with possible tiny thin
residual web in the left lower lobe. Similar mild cardiomegaly. Moderate coronary artery calcification. This is compared to prior CT on 02/06/24. We are consulted for evaluation 03/19/25.
Chronic PE, with interval resolution
Palpitations, chest pressure
Tachycardia
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
History of BL PE/DVT, last adm at 01/2024--now on lifelong Eliquis
Sees [facility] for lifelong OAC
Moderate SAJAN not on CPAP
Following w/ [facility]
RLD, mild and likely from body habitus/^BMI
Afib
History of LLE DVT
HTN
Anxiety
Morbid obesity, BMI 40
Cervical Lymph Node Excision
Cholecystectomy
Breast Biopsy
Shoulder Arthroscopy
Plan
No oxygen was needed on admission, currently saturating 94% on RA
Prior history of lung disease is noted--
She was diagnosed with left lower extremity DVT 3 years ago and completed 3 months of Eliquis.
There was demonstrated recurrence of clot in which she was placed on a prolonged course of Eliquis she thinks about 6 months additionally.
She denies any family history of blood clots. She is not aware of any genetic history.
Had recurrence in 01/2024 with plan for lifelong OAC
Denies any prior history of lung disease, she was a former smoker half a pack a day for 10 years, quit over 30 years ago.
Last PFT in office with mild restriction
CXR/CT obtained indicating chronic PE favored over acute, wtih internal resolution of some of the prior clots
Maintained on Eliquis since last admission
This is not likely the cause or contributing given its burden is smaller than prior
Other imaging reviewed
Prior ECHO results reviewed normal function, repeat pending
Mildly elevated trops, tachycardia--poorly controlled or repeat AFib?
She was recently diagnosed with moderate SAJAN and is not on PAP--weight has increased since last admission as well
Moderate PH noted, will need repeat ECHO as OP to monitor
Agree with cards eval
From our standpoint, she can be transitioned back to Eliquis
If heparin is needing to continue for ACS reasons, would need to clarify with cards
SAJAN history, moderate on HST
She was agreeable to starting CPAP nightly, will order
We can arrange set up as OP
Weight loss measures recommended
Obesity likely contributing to respiratory symptoms
BMI increased to 40, she is morbidly obese
Will need outpatient pulmonary evaluation in our office for PFTs and 6MWT
Follows with Dr Braxton--OP records reviewed
Reviewed with patient
We will follow
Diagnostic Data
Chest X-Ray:
CT Scan: CHEST 03/18/25- 1. Chronic nonocclusive, embolism as described. No convincing evidence for acute or worsening pulmonary embolism. 2. Possible chronic component of right heart strain.
CHEST 02/06/24- 1. Large pulmonary emboli within the right and left pulmonary arteries extending throughout the segmental pulmonary arteries. There is evidence of mild right heart strain with flattening of the interventricular septum and slight flux
of contrast into the IVC. The main pulmonary artery is mildly dilated measuring 3.6 cm suggestive of pulmonary arterial hypertension.
LE Duplex- There is nonocclusive deep venous thrombosis in the right popliteal vein
Echo: 02/07/24- Normal left ventricular size and systolic function. No regional wall motion abnormalities are seen. LV ejection fraction is 70-75%. Mild concentric left ventricular hypertrophy. Stage I diastolic dysfunction suggestive of abnormal
relaxation. Normal right ventricular size. Normal right ventricular systolic function. Structurally normal mitral valve without significant stenosis or regurgitation. Moderate aortic stenosis. Peak/mean gradients are 46/24mmHg. The valve area by
pressure half time is 1.2cm sq, using a LVOT of 2.0cm. Mild aortic regurgitation. Trace tricuspid regurgitation. Estimated pulmonary artery pressure of 60-65 mmHg. Assuming a right atrial pressure of 8 mmHg. Compared to prior study 03/10/2022
pulmonary hypertension is now noted. Aortic valve stenosis is now moderate.
PFT's: Pulmonary function testing ( 05/16/2024 ): FEV1:1.81 L - 76%. FVC:2.38 L - 76%. FEV1/FVC ratio:76%.
T.64 L-75%. RV:1.21 L-62%. RV/TLC ratio:33% -- mild restriction likely from body habitus
DLCO: 17.15-78%. DLCO/VA: 99%
Reports and relevant images were personally reviewed.
Total time spent on this encounter __75__ includes review of history, physical exam, medications, laboratory data, personal review of imaging, extensive review of outpatient records, discussion with care team and respiratory therapy.
--- NOTE | 2025-03-19 09:22 | CON.CAR ---
Addendum entered and electronically signed by Prosper Higuera MD 03/19/25 18:05:
I saw and examined the patient.
The Nitrate Operator's note was reviewed and I agree with the note.
Comment:
GEN: No distress, awake, Ox3
HEENT: supple, anicteric, mmm
LUNGS: CTA, no wheezes/rales
CV: Reg, S1/S2, 1/6 syst LSB, no gallop
ABD: soft, BS+, NT/ND
EXT: No edema
NEURO: Gross non-focal
SKIN: No rash
Plan:
64-year-old female with past medical history of DVT/PE on chronic anticoagulation, paroxysmal atrial fibrillation, moderate aortic stenosis, hypertension hyperlipidemia presents with palpitations, fluttering, and chest discomfort. She was found to
be having multiple paroxysms of atrial fibrillation. She has been very stressed with her with dementia and his increased dietary triggers. She presented with rapid atrial fibrillation and was started on IV Cardizem and converted back into
sinus rhythm.
Echocardiogram interpreted by me today reveals EF of 63% with moderate aortic stenosis, mild to moderate aortic regurgitation, mean gradient of 20 mmHg aortic valve area 1.2.
CT scan reveals residual pulmonary embolism. She was placed on IV heparin for now.
We discussed with her treatment options for her paroxysmal atrial fibrillation and agreed to initiate Tikosyn loading for 3 days while hospitalized. Hopefully this will help her maintain sinus rhythm.
We also discussed if she continues to have episodes of atrial fibrillation would consider ablation.
Continue lisinopril. Would wean off IV Cardizem drip and likely initiate Toprol.
Original Note:
Consultation
Consultation Request
Date/Time Consultation Performed: 03/19/25
Requesting Provider: Dr. Logan
Performing Provider: Aicha Hinds PA-C for Dr. Higuera
Reason for Consultation: afib with RVR
Medical History
-
Chief Complaint: palpitations
History of Present Illness:
Patient is a 64-year-old female with past medical history of DVT, bilateral PE diagnosed 01/2024, paroxysmal atrial fibrillation, moderate , hypertension, hyperlipidemia who presents to [facility] with complaints of palpitations. She reports she noted
fluttering starting around 3 PM yesterday consistent with her a flutter. She reports over the last month she has had multiple paroxysms of atrial fibrillation. She also describes a different type of palpitation, where she feels her heart racing
and she is able to stop it temporarily with holding her breath, and this also has been occurring more frequently over the last month or so. She reports her symptoms seem to correlate with increased sugar intake. She also states she has right
calcific tendinitis and this was injected with steroid on 02/28/2025 and then was prescribed a then methylprednisolone pack for 6 days as of 03/07. She reports some associated chest pressure with rapid heart rates, now improved. She was started on
IV Cardizem and IV heparin and spontaneously converted to sinus rhythm around [address] also showed evidence of continued PE. Cardiology consulted for evaluation and management of atrial fibrillation
PMH:
PAF
History of left lower extremity DVT, B/L PE 01/2024
Chronic OAC with eliquis
mod by echo 05/2024
HTN
HLD
Prediabetes
Right calcific tendinitis
Depression/anxiety
Obesity
SAJAN
Past Medical History
Past Medical History: Other (in [facility])
Social History
Tobacco: Former Smoker (remote)
Alcohol: None
Personal:
Employment: Retired
Family History
Family History: Cancer
Allergies / Home Medications
Allergy/AdvReac Type Severity Reaction Status Date / Time
No Known Allergies Allergy Verified 03/18/25 19:12
�Medication �Instructions �Recorded �Confirmed �Type
escitalopram oxalate 20 mg tablet 20 mg PO HS Depression 04/15/10 03/19/25 History
magnesium 250 mg tablet 250 mg PO DAILY Electrolyte 10/27/11 03/19/25 History
Repletion
clotrimazole-betamethasone 1 1 applic topical BIDPRN PRN itching 02/06/24 03/19/25 History
%-0.05 % topical cream
lurasidone 20 mg tablet 20 mg PO HS Mental Health/Anxiety 02/06/24 03/19/25 History
rosuvastatin 10 mg tablet 10 mg PO DAILY High Cholesterol 02/06/24 03/19/25 History
therapeutic multivitamin 1 tab PO DAILY Supplement 02/06/24 03/19/25 History
lisinopril 5 mg tablet 10 mg (2 x 5 mg) PO DAILY Blood 02/08/24 03/19/25 Rx
Pressure 30 days #60 tabs
apixaban 5 mg tablet (Eliquis) 5 mg PO BID 03/19/25 03/19/25 History
Review of Systems
-
History Source: Patient
All other systems: Negative unless noted
Physical Exam
Vital Signs
Temp Pulse Resp BP Pulse Ox
98.3 F 65 16 137/71 94
03/19/25 07:52 03/19/25 08:00 03/19/25 07:52 03/19/25 07:58 03/19/25 07:52
Lab Results
03/19/25 03:47
03/19/25 03:47
Troponin I 0.023 ng/ml D 03/19/25 03:47
Lut-[id number] Pept 709 pg/ml 03/19/25 03:47
Physical Exam
General: No Apparent Distress and Comfortable
HEENT: Normocephalic, Anicteric and Moist Mucous Membranes
Respiratory: Clear and Non Labored Respirations
Cardiac: S1/S2, Regular Rhythm and Murmur
GI: Soft, Non Tender, Non Distended and Normal Bowel Sounds
Musculoskeletal: No Clubbing, No Cyanosis and No Edema
Skin: Warm and Dry
Neuro: AO x 3
Impression / Plan
-
Primary Assistant Activities Director: Dr. Baron
Assessment:
Presentation with rapid HR
Atrial fibrillation with RVR, s/p spontaneous conversion to SR
Palpitations
PAF
History of left lower extremity DVT, B/L PE 01/2024
Chronic OAC with eliquis
mod by echo 05/2024
HTN
HLD
Prediabetes
Right calcific tendinitis
Depression/anxiety
Obesity
SAJAN
ECHO 05/14/24: EF 66%, mild concentric LVH, moderate with peak/mean gradients 42/25 mmHg
Plan:
- Patient presents with rapid heart rates and fluttering and found to be in A-fib with RVR. She has history of paroxysmal atrial fibrillation, which she states has been increasing in frequency of paroxysms over the last month.
- She was started on IV Cardizem overnight and spontaneously converted to sinus rhythm
- She remains in sinus rhythm on review of telemetry at this time
- Discussed options with patient regarding treatment of paroxysmal atrial fibrillation including antiarrhythmic drug therapy. We discussed options including Tikosyn as well as amiodarone as well as potential side effects. She is agreeable to stay
for Tikosyn loading. Will initiate Tikosyn 500 mcg every 12 hours and follow QTc. Of note she is on escitalopram 20 mg nightly for depression/anxiety
- We also discussed EP evaluation for ablation once discharged
- She is currently on IV heparin as by chest CT noted to have moderate amount of residual PE. Was initially diagnosed 01/2024. She has been on Eliquis as an outpatient. Pulmonary asked to evaluate patient
- She interestingly seems to note increased sugar consumption as a trigger for atrial arrhythmia. Hemoglobin A1c is 6.2%. Continue dietary modification
- Check echo, last from 05/2024 with results as above, preserved EF and moderate .
- TSH within normal limits
Data Reviewed
-
EKG: Tracing Personally Visualized and interpreted
CT Scan: Report Reviewed by me
Medical Tests (Nuc Med, Echo etc): Report Reviewed by me
Labs: Labs Reviewed by me
Old Records: Reviewed
[2025-03-19 09:26] LABS: Troponin I 0.014 ng/ml
--- NOTE | 2025-03-19 09:33 | PTCARENOTE ---
Pt OOB,ambulating in room, denies pain, offers no complaints. PTT 133, Heparin drip on hold for 1 hr, will restart at rate 300 units less than previous rate which will be 1600 units/hr, as per protocol.
--- NOTE | 2025-03-19 09:39 | W.CARD.TIKOS ---
Initiate Tikosyn
-
I verify that the patient has not taken any verapamil (Isoptin/Calan), ketoconazole (Nizoral), cimetidine (Tagamet), trimethoprim (Trimpex), trimethoprim/sulfamethoxazole (Bactrim), megesterol (Megace), prochlorperazine (Compazine),
hydrochlorothiazide (HCTZ), dolutegravir (Tivicay) or any Class I or Class III anti-arrhythmic within the last three days
AND
I verify that the patient has not taken amiodarone within the last THREE months, or that the patient's amiodarone plasma concentration is <0.3 mcg/mL.
Creatinine 0.7 mg/dL (0.6-1.0) 03/19/25 03:47
Estimated Creat Clear 93 ml/min 03/19/25 03:47
Does patient have a Ventricular Conduction Abnormality: No
I have assessed the baseline QTc interval (using QT for heart rate less than 60 bpm) and deemed the patient is appropriate for Dofetilide therapy. I understand that Tikosyn is contraindicated if the QTc is >440msec (500msec in patients with
ventricular conduction abnormalities).
Baseline QTc (in msec): 426
QTc interval is greater than 440msec without conduction abnormality OR greater than 500msec with a conduction abnormality, but acceptable to proceed per Cardiology attending.
Ordering Physician: Prosper Higuera
[2025-03-19] MEDS: TIKOSYN 500 MCG PO ×2 (10:07→20:02)
--- NOTE | 2025-03-19 11:13 | CM ---
spoke to pt in room, she is prev indep, lives alone in a 1 story home with no steps to enter. she denies any dme's or dc planning needs. plan is for dc to home when medically stable.
--- NOTE | 2025-03-19 11:40 | W.PN.UPDATE ---
Update Note
Progress Note Update
Patient seen and examined at bedside. Nonbillable note.
General: Well Developed, Well Nourished and No Apparent Distress
HEENT: NormoCephalic, Moist mucous membranes and Atraumatic
Respiratory: Clear
Cardiac: S1/S2 and regular Rhythm; No Murmur or Rub
GI: Soft, Non Tender, Non Distended and Normal Bowel Sounds
Musculoskeletal: No Edema
Skin: No Rash
Neuro: AO x 3 and Nonfocal/grossly intact
Atrial fibrillation with RVR
Now converted back to normal sinus rhythm
History of paroxysmal atrial fibrillation
On Cardizem drip
Cardiology starting Tikosyn, continue to monitor QTc
-tsh wnl
-Check echocardiogram
Continue with heparin drip
Chest pain with mild troponin elevation likely secondary to nonischemic myocardial injury
-IV heparin for now
Check echo
Cardiology following
Pulmonary embolism -significant residual pulmonary embolism despite over 1 year of anticoagulation. No evidence of new or additional disease, likely improving moderately.
-IV heparin
-Pulmonary evaluation
Likely will benefit from hematology outpatient
D-dimer much improved from before
Prediabetes
A1c 6.2
Monitor
History of pulmonary hypertension
Hypertension
Lisinopril
Generalized anxiety disorder
Obesity secondary to excess calories
DVT prophylaxis�on heparin drip
CODE STATUS�full code
[2025-03-19 16:52] LABS: APTT 122.5 Sec (23.4-35.0)
[2025-03-19 17:04] LABS: Troponin I < 0.012 ng/ml
[2025-03-19] MEDS: LEXAPRO 20 MG PO (21:57)
[2025-03-19] MEDS: LATUDA 20 MG PO (21:57)
[2025-03-20] VITALS (12 sets, daily range): BP systolic 133–184; BP diastolic 59–87; PULSE 57
[2025-03-20 00:40] LABS: APTT 114.2 Sec (23.4-35.0)
[2025-03-20 08:05] LABS: APTT 69.9 Sec (23.4-35.0)
--- NOTE | 2025-03-20 08:42 | W.PN.HOSP.TC ---
Today's Communication/Plan
-
cont tikosyn load while in SR as per Card
Switch to ELiquis
Assessment / Plan
Assessment / Plan
64yo F with HTN, HLD, Hx of VTE (diagnosed in Jan 2024) migraine, anxiety, Afib diagnosed in January 2025 came with persistent palpitations, managed for Afib with RVR currently in sinus while loaded with Tikosyn as per cardiology
A/P:
#Afib with RVR, unspecified
#Non ischemic myocardial injury 2/2 RVR with elevated troponin
telemetry
Tikosyn load, follow QTc
Cardio consult
TSH WNL
Serial troponin - normalized
Echo: EF 63%, moderate , mild-moderate AR
#VTE
persistent
pulm consult
CT chest - chronic PE without worsening, so reasonable to switch Heparin drip back to DOAC
#Mild leukocytosis
2/2 VTE
no signs of infection
#Essential HTN
#ANA
#Obesity with BMI 40.0
#PreDM
#HLD
cont home meds
decrease calorie intake
low carb diet
DVT ppx Eliquis
Full code
I have spent at least 52min reviewing chart, test results, communication with consultantants and providing direct paatient care
Anticipated Discharge: 24 - 48 hours
Subjective/Interval History
-
Date of Service: March 20, 2025
Objective Data
-
Labs:
Laboratory Results
03/20/25 03/20/25
00:14 07:36
APTT 114.2 H 69.9 H
Sodium Pending
Potassium Pending
Chloride Pending
Carbon Dioxide Pending
BUN Pending
Creatinine Pending
Glucose Pending
Calcium Pending
Vital Signs:
Vital Signs
Temp Pulse Resp BP Pulse Ox
97.8 F 61 20 133/74 94
03/20/25 07:25 03/20/25 06:00 03/20/25 07:25 03/20/25 03:57 03/20/25 07:25
I&O
03/19/25 03/20/25 03/21/25
06:59 06:59 06:59
Intake Total 240 / 240 480 / 480
Balance 240 / 240 480 / 480
Review of Systems
-
History Source: Patient
All other systems: Reviewed and negative
Physical Exam
-
General: No Apparent Distress
HEENT: Normocephalic
Respiratory: Clear to Auscultation
Neuro: Awake, Alert, Oriented and AO x 3
Psych: Calm
[2025-03-20 08:51] LABS: Blood Urea Nitrogen 14 mg/dl (7-17); Calcium 9.3 mg/dl (8.4-10.2); Carbon Dioxide 29 mmol/L (22-30); Estimated Creatinine Clearance 93 ml/min; Glucose 106 mg/dl (70-99); Potassium 4.4 mmol/L (3.5-5.1); Sodium 139 mmol/L (135-145); eGFR > 60.00
[2025-03-20] MEDS: MAGNESIUM OXIDE 200 MG PO (08:55)
[2025-03-20] MEDS: TIKOSYN 500 MCG PO ×2 (08:55→20:31)
[2025-03-20] MEDS: ZESTRIL 10 MG PO ×2 (08:55→19:40)
[2025-03-20] MEDS: ELIQUIS 5 MG PO ×2 (08:55→20:31)
[2025-03-20] MEDS: CRESTOR 10 MG PO (08:55)
--- NOTE | 2025-03-20 09:03 | W.PN.PUL3 ---
Today's Communication / Plan
-
Doing well with CPAP, she wishes for increase in pressure, we can try 10cm water
We will arrange OP set up and FU in office
Further Afib management per Simba jaime completed tomorrow
Transitioned back to Eliquis
Hopefully d/c planning in next 24 hours
No further recs from our standpoint, will sign off-pls call with questions
Assessment
-
This is a 64-year-old female with past medical history significant for atrial fibrillation, PE/DVT on lifelong OAC, hyperlipidemia and hypertension who presents to the emergency department with complaints of palpitations, chest pressure, and
tachycardia. In the emergency department, the patient was afebrile, blood pressure was 143/104 with a pulse rate of 111. Oxygen saturation was 98%. ECG shows atrial fibrillation/atrial flutter with rates of 97-107. Initial troponin was less than
0.012, repeat troponin was 0.039. A CT angiogram showed thickened linear pulmonary artery embolus in the distal main right pulmonary artery extending into the right lower lobe pulmonary artery, overall decreased since prior exam. Most likely this
is a chronic nonocclusive linear pulmonary embolus that has partially recanalized and is most likely improved since prior exam rather than any new pulmonary embolus. Interval resolution of previously noted pulmonary embolus with possible tiny thin
residual web in the left lower lobe. Similar mild cardiomegaly. Moderate coronary artery calcification. This is compared to prior CT on 02/06/24. We are consulted for evaluation 03/19/25.
Chronic PE, with interval resolution
Palpitations, chest pressure
Tachycardia
Conditions present [employer]
History of BL PE/DVT, last adm at 01/2024--now on lifelong Eliquis
Sees [facility] for lifelong OAC
Moderate SAJAN not on CPAP
Following w/ [facility]
RLD, mild and likely from body habitus/^BMI
Afib
History of LLE DVT
HTN
Anxiety
Morbid obesity, BMI 40
Cervical Lymph Node Excision
Cholecystectomy
Breast Biopsy
Shoulder Arthroscopy
Plan
No oxygen was needed on admission, currently saturating 94% on RA
Prior history of lung disease is noted--
She was diagnosed with left lower extremity DVT 3 years ago and completed 3 months of Eliquis.
There was demonstrated recurrence of clot in which she was placed on a prolonged course of Eliquis she thinks about 6 months additionally.
She denies any family history of blood clots. She is not aware of any genetic history.
Had recurrence in 01/2024 with plan for lifelong OAC
Denies any prior history of lung disease, she was a former smoker half a pack a day for 10 years, quit over 30 years ago.
Last PFT in office with mild restriction
CXR/CT obtained indicating chronic PE favored over acute, wtih internal resolution of some of the prior clots
Maintained on Eliquis since last admission
This is not likely the cause or contributing given its burden is smaller than prior
Other imaging reviewed
Prior ECHO results reviewed normal function, repeat pending
Mildly elevated trops, tachycardia--poorly controlled or repeat AFib?
She was recently diagnosed with moderate SAJAN and is not on PAP--weight has increased since last admission as well
Moderate PH noted, will need repeat ECHO as OP to monitor
Agree with cards cristian
From our standpoint, she can be transitioned back to [facility]--transitioned per team
Off IV heparin
SAJAN history, moderate on HST
She was agreeable to starting CPAP nightly, will order--tolerated well, will adjust pressure to 10
We can arrange set up as OP, she is agreeable
Weight loss measures recommended
Obesity likely contributing to respiratory symptoms
BMI increased to 40, she is morbidly obese
Will need outpatient pulmonary evaluation in our office for PFTs and 6MWT
Follows with Dr Braxton--OP records reviewed
Reviewed with patient
Diagnostic Data
Chest X-Ray:
CT Scan: CHEST 03/18/25- 1. Chronic nonocclusive, embolism as described. No convincing evidence for acute or worsening pulmonary embolism. 2. Possible chronic component of right heart strain.
CHEST 02/06/24- 1. Large pulmonary emboli within the right and left pulmonary arteries extending throughout the segmental pulmonary arteries. There is evidence of mild right heart strain with flattening of the interventricular septum and slight flux
of contrast into the IVC. The main pulmonary artery is mildly dilated measuring 3.6 cm suggestive of pulmonary arterial hypertension.
LE Duplex- There is nonocclusive deep venous thrombosis in the right popliteal vein
Echo: 02/07/24- Normal left ventricular size and systolic function. No regional wall motion abnormalities are seen. LV ejection fraction is 70-75%. Mild concentric left ventricular hypertrophy. Stage I diastolic dysfunction suggestive of abnormal
relaxation. Normal right ventricular size. Normal right ventricular systolic function. Structurally normal mitral valve without significant stenosis or regurgitation. Moderate aortic stenosis. Peak/mean gradients are 46/24mmHg. The valve area by
pressure half time is 1.2cm sq, using a LVOT of 2.0cm. Mild aortic regurgitation. Trace tricuspid regurgitation. Estimated pulmonary artery pressure of 60-65 mmHg. Assuming a right atrial pressure of 8 mmHg. Compared to prior study 03/10/2022
pulmonary hypertension is now noted. Aortic valve stenosis is now moderate.
PFT's: Pulmonary function testing ( 05/16/2024 ): FEV1:1.81 L - 76%. FVC:2.38 L - 76%. FEV1/FVC ratio:76%.
T.64 L-75%. RV:1.21 L-62%. RV/TLC ratio:33% -- mild restriction likely from body habitus
DLCO: 17.15-78%. DLCO/VA: 99%
Reports and relevant images were personally reviewed.
Total time spent on this encounter __51__ includes review of history, physical exam, medications, laboratory data, personal review of imaging, extensive review of outpatient records, discussion with care team and respiratory therapy.
Subjective Data
-
Date of Service:
Date of Service: March 20, 2025
Chief Complaint: Pulmonary Follow Up
Subjective:
Stable on RA, tolerated her CPAP well overnight
She feels pressure could be higher
No further Afib episodes
Objective Data
Data Reviewed
Vital Signs / I&O / Oxygen:
Vital Signs
Temp Pulse Resp BP Pulse Ox
97.8 F 61 20 133/74 94
03/20/25 07:25 03/20/25 06:00 03/20/25 07:25 03/20/25 03:57 03/20/25 07:25
Intake and Output
03/19/25 03/20/25 03/21/25
06:59 06:59 06:59
Intake Total 240 / 240 480 / 480
Balance 240 / 240 480 / 480
SaO2 94
Physical Exam
General: Comfortable and Other (NAD)
HEENT: Normocephalic, Anicteric and Moist Mucous Membranes
Cardiovascular: S1-S2, Regular Rhythm and Murmur
Respiratory: Clear and Non-Labored Respirations
GI: Soft, Non Distended and Non Tender
Neurology: Awake, Alert, Oriented and No Motor Deficits
Skin: Warm, Dry and Good Color
Labs/Micro/Reports
Lab Data
03/19/25 03:47
03/20/25 07:36
Laboratory Results
03/19/25 03/19/25 03/20/25
08:46 16:34 00:14
APTT 133.0 H 122.5 H 114.2 H
03/20/25
07:36
APTT 69.9 H
Microbiology
03/18/25 19:25 Urine Urine Culture - Final
[2025-03-20 09:10] LABS: Chloride 105 mmol/L (98-107)
--- NOTE | 2025-03-20 09:12 | PTCARENOTE ---
Assumed care. Patient up walking in halls. NSR 70-80's. Heparin gtt discontinued, PO Eliquis given. #3 dose of Tikosyn given
--- NOTE | 2025-03-20 11:24 | CM ---
Chart reviewed. Patient is independent of ADLS, lives alone in a 1 [address], 0 [address], is in Personal Care. Plan is for the patient to return home. CM to follow
--- NOTE | 2025-03-20 11:25 | CM ---
Pricing on Dofetilide through the patient's PP is covered at $15 for a 30 day supply. Patient will need a 3 day supply to go home.
--- NOTE | 2025-03-20 12:02 | W.PN.CARDCBS ---
Addendum entered and electronically signed by Cristobal Ho DO 03/20/25 13:07:
I saw and examined the patient.
The Tree Killer's note was reviewed and I agree with the note.
Comment:
Patient seen and examined. Patient resting comfortably in bed without complaint. Denies chest pain, shortness of breath, palpitations, weakness. Telemetry shows sinus rhythm without ectopy.
GEN: No distress, awake, alert, oriented x3. Obese
HEENT: supple, anicteric, mmm, EOMI
LUNGS: CTA bilaterally, no wheezes/rales
CV: Reg, S1/S2, 1/6 syst LSB
ABD: soft, BS+, NT/ND
EXT: No cyanosis, clubbing, edema
NEURO: Gross non-focal
SKIN: Warm, pink, dry. No rash
A/P as below
QT/QTc remained stable after a.m. dose of dofetilide (442/444 ms) in sinus rhythm
Monitor QT/QTc, increase TURNER inhibitor monitor renal function/electrolytes
Outpatient evaluation for ablation
Original Note:
Today's Communication / Plan
-
Continue Tikosyn 500mcg Q12H
Follow QTc
Increase lisinopril
Outpatient EP eval for ablation
Impression / Plan
-
Primary Pesticide Chemist: Dr. Baron
Assessment:
Presentation with rapid HR
Atrial fibrillation with RVR, s/p spontaneous conversion to SR
Palpitations
PAF
History of left lower extremity DVT, B/L PE 01/2024
Chronic OAC with eliquis
mod by echo 05/2024
HTN
HLD
Prediabetes
Right calcific tendinitis
Depression/anxiety
Obesity
SAJAN
ECHO 05/14/24: EF 66%, mild concentric LVH, moderate with peak/mean gradients 42/25 mmHg
Echo 03/19/2025: EF 63%, mild concentric LVH, moderate with peak/mean gradients 45/28 mmHg, mild to moderate AI R, CARRILLO 1.2 to 1.3 cm�, mild MR
Plan:
- She presented with PAF with RVR
- Spontaneously converted to sinus rhythm on IV Cardizem.
- Continue Tikosyn loading. QTc remains stable on 500 mcg every 12 hours thus far. Of note she is on escitalopram 20 mg nightly for depression/anxiety
- Remains in sinus rhythm on review of telemetry overnight
- We also discussed EP evaluation for ablation once discharged
- She has history of PE and chest CT noted moderate amount of residual. Appreciate pulmonary input. Transitioned back to [facility]
- She interestingly seems to note increased sugar consumption as a trigger for atrial arrhythmia. Hemoglobin A1c is 6.2%. Continue dietary modification
- Echo with results as above, remains stable compared to prior from 05/2024
- Is noted to have elevated blood pressures from admission. Will plan to increase lisinopril to 10 mg twice daily, was on 10 mg daily prior to admission
- Continue treatment of obstructive sleep apnea
- Hopeful for discharge to home tomorrow
- Discussed with nursing. Discussed with daughter at bedside
Progress Note - Pesticide Chemist
Subjective
Date of Service: March 20, 2025
Denies chest pain, shortness of breath. Reports feeling well
Objective
Labs:
03/19/25 03:47
03/20/25 07:36
Labs
Hgb 14.5 g/dL (12.0-16.0) 03/19/25 03:47
Hct 43.8 % (37.0-47.0) 03/19/25 03:47
Plt Count 262 10^3/uL (130-400) 03/19/25 03:47
APTT 69.9 Sec (23.4-35.0) H 03/20/25 07:36
Sodium 139 mmol/L (135-145) 03/20/25 07:36
Potassium 4.4 mmol/L (3.5-5.1) 03/20/25 07:36
BUN 14 mg/dl (7-17) 03/20/25 07:36
Creatinine 0.7 mg/dL (0.6-1.0) 03/20/25 07:36
Glucose 106 mg/dl (70-99) H 03/20/25 07:36
Troponins
03/18/25 03/18/25 03/19/25
19:25 23:36 03:47
Troponin I < 0.012 0.039 H* D 0.023 D
03/19/25 03/19/25
08:46 16:34
Troponin I 0.014 D < 0.012
Vital Signs and I&O:
Vital Signs
Temp Pulse Resp BP Pulse Ox
97.9 F 66 18 171/74 94
03/20/25 11:22 03/20/25 09:00 03/20/25 11:22 03/20/25 07:30 03/20/25 11:22
Vital Signs
Temp Pulse Resp BP Pulse Ox
97.9 F 66 18 171/74 94
03/20/25 11:22 03/20/25 09:00 03/20/25 11:22 03/20/25 07:30 03/20/25 11:22
Intake & Output
03/18/25 03/19/25 03/20/25 03/21/25
07:59 07:59 07:59 07:59
Intake Total 240 / 240 480 / 480
Balance 240 / 240 480 / 480
Physical Exam
Physical Exam
GEN: No distress, awake, alert, oriented x3. Obese
HEENT: supple, anicteric, mmm, EOMI
LUNGS: CTA bilaterally, no wheezes/rales
CV: Reg, S1/S2, 1/6 syst LSB
ABD: soft, BS+, NT/ND
EXT: No cyanosis, clubbing, edema
NEURO: Gross non-focal
SKIN: Warm, pink, dry. No rash
--- NOTE | 2025-03-20 19:13 | PTCARENOTE ---
Patient complaints of palpations. Telemetry reviewed, NSR with PVC's and short period of bigeminy. Strip mounted in chart, will continue to monitor
[2025-03-20] MEDS: ZESTRIL PO (19:40)
[2025-03-20] MEDS: LATUDA 20 MG PO (21:41)
[2025-03-20] MEDS: LEXAPRO 20 MG PO (21:41)
--- NOTE | 2025-03-21 00:14 | PTCARENOTE ---
Received pt at change of shift resting in bed. SR with PAC's on tele, HR 60's. pt denies any CP or SOB at this time. Tikosyn dose #4 administered and EKG 2 hrs post obtained. Updated pt on plan of care. Encouraged pt to call RN with any
questions/concerns. Call acosta within reach.
[2025-03-21 03:15] VITALS: PULSE 58
[2025-03-21 03:28] VITALS: BMI 39.6
[2025-03-21 03:31] VITALS: BP 137/58
[2025-03-21 07:44] VITALS: BP 115/56
[2025-03-21] MEDS: CRESTOR 10 MG PO (08:05)
[2025-03-21] MEDS: MAGNESIUM OXIDE 200 MG PO (08:05)
[2025-03-21] MEDS: ELIQUIS 5 MG PO (08:05)
[2025-03-21] MEDS: TIKOSYN 500 MCG PO (08:05)
[2025-03-21] MEDS: ZESTRIL 10 MG PO (08:16)
[2025-03-21 08:38] LABS: Blood Urea Nitrogen 17 mg/dl (7-17); Calcium 9.4 mg/dl (8.4-10.2); Carbon Dioxide 29 mmol/L (22-30); Chloride 103 mmol/L (98-107); Estimated Creatinine Clearance 92 ml/min; Glucose 107 mg/dl (70-99); Potassium 4.7 mmol/L (3.5-5.1); Sodium 139 mmol/L (135-145); eGFR > 60.00
--- NOTE | 2025-03-21 08:42 | W.PN.CARDCBS ---
Addendum entered and electronically signed by Cristobal Ho DO 03/21/25 09:49:
I saw and examined the patient.
The [place] Leverman's note was reviewed and I agree with the note.
Comment:
Patient tolerating dofetilide. Telemetry overnight showed sinus rhythm with PVC, PAC. No further episodes of atrial fibrillation
EKG from overnight demonstrates sinus rhythm with stable QT/QTc 438/444 ms respectively
Lab work this morning pending. If renal function, electrolytes stable and QT/QTc remained stable on current dosing of dofetilide, patient will be stable for DC
Patient has outpatient follow-up with primary safety director and electrophysiology for further discussion regarding ablation
Original Note:
Today's Communication / Plan
-
Continue Tikosyn
QTc stable
Lisinopril increased. Follow blood pressures at home
Outpatient EP eval for ablation
Plan for DC to home today
Impression / Plan
-
Primary Digital Media Manager: Dr. Baron
Assessment:
Presentation with rapid HR
Atrial fibrillation with RVR, s/p spontaneous conversion to SR
Palpitations
PAF
History of left lower extremity DVT, B/L PE 01/2024
Chronic OAC with eliquis
mod by echo 05/2024
HTN
HLD
Prediabetes
Right calcific tendinitis
Depression/anxiety
Obesity
SAJAN
ECHO 05/14/24: EF 66%, mild concentric LVH, moderate with peak/mean gradients 42/25 mmHg
Echo 03/19/2025: EF 63%, mild concentric LVH, moderate with peak/mean gradients 45/28 mmHg, mild to moderate AI R, CARRILLO 1.2 to 1.3 cm�, mild MR
Plan:
- She presented with PAF with RVR
- Spontaneously converted to sinus rhythm on IV Cardizem.
- Continue Tikosyn loading. QTc remains stable on 500 mcg every 12 hours thus far. Of note she is on escitalopram 20 mg nightly for depression/anxiety
- Remains in sinus rhythm on review of telemetry overnight. Interestingly, patient had some palpitations overnight which corresponded to episode of ventricular bigeminy. K stable. Check mag
- We also discussed EP evaluation for ablation once discharged
- She has history of PE and chest CT noted moderate amount of residual clot. Appreciate pulmonary input. Transitioned from IV heparin back to Eliquis
- She interestingly seems to note increased sugar consumption as a trigger for arrhythmias. Hemoglobin A1c is 6.2%. Continue dietary modification
- Echo with results as above, remains stable compared to prior from 05/2024
- Is noted to have elevated blood pressures from admission. Lisinopril dose increased to 10 mg twice daily on 03/20. Will need continued outpatient monitoring
- Continue treatment of obstructive sleep apnea
- Okay for discharge to home today if QTc stable after fifth dose of Tikosyn
- Discussed with nursing.
Progress Note - Digital Media Manager
Subjective
Date of Service: March 21, 2025
Reports episode of palpitations overnight correlating with ventricular bigeminy. No chest pain or shortness of breath
Objective
Labs:
03/19/25 03:47
03/21/25 07:54
Labs
Hgb 14.5 g/dL (12.0-16.0) 03/19/25 03:47
Hct 43.8 % (37.0-47.0) 03/19/25 03:47
Plt Count 262 10^3/uL (130-400) 03/19/25 03:47
APTT 69.9 Sec (23.4-35.0) H 03/20/25 07:36
Sodium 139 mmol/L (135-145) 03/21/25 07:54
Potassium 4.7 mmol/L (3.5-5.1) 03/21/25 07:54
BUN 17 mg/dl (7-17) 03/21/25 07:54
Creatinine 0.7 mg/dL (0.6-1.0) 03/21/25 07:54
Glucose 107 mg/dl (70-99) H 03/21/25 07:54
Troponins
03/18/25 03/18/25 03/19/25
19:25 23:36 03:47
Troponin I < 0.012 0.039 H* D 0.023 D
03/19/25 03/19/25
08:46 16:34
Troponin I 0.014 D < 0.012
Vital Signs and I&O:
Vital Signs
Temp Pulse Resp BP Pulse Ox
97.8 F 61 18 137/58 93
03/21/25 03:31 03/21/25 07:00 03/21/25 03:31 03/21/25 03:31 03/21/25 03:31
Vital Signs
Temp Pulse Resp BP Pulse Ox
97.8 F 61 18 137/58 93
03/21/25 03:31 03/21/25 07:00 03/21/25 03:31 03/21/25 03:31 03/21/25 03:31
Intake & Output
03/19/25 03/20/25 03/21/25 03/22/25
07:59 07:59 07:59 07:59
Intake Total 240 / 240 480 / 480 1200 / 1200
Balance 240 / 240 480 / 480 1200 / 1200
Physical Exam
Physical Exam
GEN: No distress, awake, alert, oriented x3. Obese
HEENT: supple, anicteric, mmm, EOMI
LUNGS: CTA bilaterally, no wheezes/rales
CV: Reg, S1/S2, 1/6 syst LSB
ABD: soft, BS+, NT/ND
EXT: No cyanosis, clubbing, edema
NEURO: Gross non-focal
SKIN: Warm, pink, dry. No rash
--- NOTE | 2025-03-21 08:53 | W.PN.HOSP.TC ---
Today's Communication/Plan
-
dc
Assessment / Plan
Assessment / Plan
64yo F with HTN, HLD, Hx of VTE (diagnosed in Jan 2024) migraine, anxiety, Afib diagnosed in January 2025 came with persistent palpitations, managed for Afib with RVR currently in sinus while loaded with Tikosyn as per cardiology. Received 5 doses
and follow up EKG reviewed with cardiology - no concerns for newly developed arrhythmia. Remained in SR. Medically stable for d/c home
A/P:
#Afib with RVR, unspecified
#Non ischemic myocardial injury 2/2 RVR with elevated troponin
telemetry
Tikosyn load, follow QTc
Cardio consult
TSH WNL
Serial troponin - normalized
Echo: EF 63%, moderate , mild-moderate AR
#VTE
persistent
pulm consult
CT chest - chronic PE without worsening, so reasonable to switch Heparin drip back to DOAC
#Mild leukocytosis
2/2 VTE
no signs of infection
#Essential HTN
#ANA
#Obesity with BMI 40.0
#PreDM
#HLD
cont home meds
decrease calorie intake
low carb diet
DVT ppx Eliquis
Full code
I have spent at least 36min reviewing chart, test results, communication with consultantants and providing direct paatient care
Anticipated Discharge: Today
Subjective/Interval History
-
Date of Service: March 21, 2025
Objective Data
-
Labs:
Laboratory Results
03/21/25
07:54
Sodium 139
Potassium 4.7
Chloride 103
Carbon Dioxide 29
BUN 17
Creatinine 0.7
Glucose 107 H
Calcium 9.4
Vital Signs:
Vital Signs
Temp Pulse Resp BP Pulse Ox
97.8 F 61 18 137/58 93
03/21/25 03:31 03/21/25 07:00 03/21/25 03:31 03/21/25 03:31 03/21/25 03:31
I&O
03/20/25 03/21/25 03/22/25
06:59 06:59 06:59
Intake Total 480 / 480 1200 / 1200
Balance 480 / 480 1200 / 1200
Review of Systems
-
History Source: Patient
All other systems: Reviewed and negative
Physical Exam
-
General: No Apparent Distress
HEENT: Normocephalic
Cardiac: Regular Rhythm
GI: Soft, Nontender and Nondistended
Skin: Warm
Neuro: Awake, Alert, Oriented and AO x 3
Psych: Calm
--- NOTE | 2025-03-21 09:54 | PTCARENOTE ---
Assumed care. Patient comfortable at rest, denies palpations. NSR, VSS. #5 Tikosyn dose given, EKG 10 am
[2025-03-21 10:16] LABS: Magnesium 1.8 mg/dl (1.6-2.3)
--- NOTE | 2025-03-21 12:48 | W.DCSUMMARY ---
Discharge Summary
Discharge Data
Date of Admission: 03/19/25
Date of Discharge: 03/21/25
-
Pending Results: No
Hospital Course
64yo F with HTN, HLD, Hx of VTE (diagnosed in Jan 2024) migraine, anxiety, Afib diagnosed in January 2025 came with persistent palpitations, managed for Afib with RVR currently in sinus while loaded with Tikosyn as per cardiology. Received 5 doses
and follow up EKG reviewed with cardiology - no concerns for newly developed arrhythmia. Remained in SR. The most recent EKG revieed with cardio - while patient QTc <500ms - cobntinue current dose of Tikosyn 500mg BID. BMP recomemnded with PCP in 1
week. Medically stable for d/c home
I have spent at least 36min reviewing chart, test results, communication with consultants and providing direct patient care
Patient was managed for:
#Afib with RVR, unspecified
#Non ischemic myocardial injury 2/2 RVR with elevated troponin
#VTE
#Mild leukocytosis
#Essential HTN
#ANA
#Obesity with BMI 40.0
#PreDM
#HLD
Discharge Plan
-
Patient Disposition: Home (Routine Discharge)
Discharge Diagnosis/Procedures: Afib
Diet: Low Cholesterol
Activity: As tolerated
Blood Work: BMP in 1 week with family doctor
Referrals:
Usman Garcia DO [Family Provider, Family Practice]
Meliton Garcia MD [Active, Pulmonary Medicine]
Referral Note: CPAP compliance visit in 90 days
Cristobal Ho DO [Active, Cardiology] - 04/06/25 8:20 am
Referral Note: You have an electrophysiology follow-up appointment at the [facility] office to discuss ablation for afib. Please call with questions.
Prescriptions:
New
lisinopril 10 mg Tablet
10 mg PO BID Qty: 60 0RF
dofetilide 500 mcg Capsule
500 mcg PO Q12H Qty: 60 0RF
Continued
escitalopram oxalate 20 MG tablet
20 mg PO HS
magnesium 250 MG tablet
250 mg PO DAILY
therapeutic multivitamin Tablet
1 tab PO DAILY
clotrimazole-betamethasone 1-0.05 % Cream
1 applic TOPICAL BIDPRN PRN (Reason: itching)
rosuvastatin 10 mg Tablet
10 mg PO DAILY
lurasidone 20 mg Tablet
20 mg PO HS
Eliquis 5 mg Tablet
5 mg PO BID
Discontinued
lisinopril 5 MG tablet
10 mg PO DAILY 30 Days Qty: 60 0RF
Discharge Orders:
Discharge Patient (As Directed); Ordered 03/21/25
Ordered By: Hao Garcias
Care Plan Goals
Care Plan Goals:
Problem: Readiness for enhanced knowledge related to diagnosis and treatment plan
Goal: Understand your diagnosis and treatment plan needs, including medications if applicable.
Instructions: Know your diagnosis, underlying causes and treatment plan options, including medications if applicable. Consult with your health care team to learn about your diagnosis and treatment plan, including medications if applicable.
Discharge Date and Time
Print Language: LAO
[2025-03-21 13:15] VITALS: BP 124/55
[2025-03-21] MEDS: FLUZONE (6 mos+) 2025-2026 FORMULA 0.5 ML IM (14:41)
--- NOTE | 2025-03-21 15:21 | PTCARENOTE ---
Patient discharged to home. Script sent to our pharmacy to obtain her 3 day supply of Tikosyn. Discharge teaching provided, she verbalized understanding. IV and telemetry removed. Patient escorted to main lobby by staff
== END 2025-03-21 15:30 | disposition home or self-care (01) | DRG 309 ==
LOC: IVU 01:56
PROVIDERS: Emergency Medicine; Internal Medicine; Internal Medicine Cardiovascular Disease; ADMITTING PHYSICIAN Internal Medicine; ATTENDING PHYSICIAN Internal Medicine; EMERGENCY PHYSICIAN Emergency Medicine; FAMILY PHYSICIAN Family Medicine; OTHER PHYSICIAN Internal Medicine; OTHER PHYSICIAN Internal Medicine Cardiovascular Disease
PROC: 3E0DXRZ Introduction of Antiarrhythmic into Mouth and Pharynx, External Approach (ICD-10-PCS; 2025-03-19)
PROC: 5A09357 Assistance with Respiratory Ventilation, Less than 24 Consecutive Hours, Continuous Positive Airway Pressure (ICD-10-PCS; 2025-03-19)
PROC: 3E02340 Introduction of Influenza Vaccine into Muscle, Percutaneous Approach (ICD-10-PCS; 2025-03-21)
DX: I48.0 Paroxysmal atrial fibrillation (principal); I27.82 Chronic pulmonary embolism; Z68.41 Body mass index [BMI] 40.0-44.9, adult; I5A Non-ischemic myocardial injury (non-traumatic); I82.431 Acute embolism and thrombosis of right popliteal vein; I10 Essential (primary) hypertension; I25.10 Atherosclerotic heart disease of native coronary artery without angina pectoris; F32.A Depression, unspecified; I35.0 Nonrheumatic aortic (valve) stenosis; G47.33 Obstructive sleep apnea (adult) (pediatric); D72.829 Elevated white blood cell count, unspecified; F41.1 Generalized anxiety disorder; R73.03 Prediabetes; E66.01 Morbid (severe) obesity due to excess calories; M75.91 Shoulder lesion, unspecified, right shoulder; I27.20 Pulmonary hypertension, unspecified; I48.92 Unspecified atrial flutter; E78.00 Pure hypercholesterolemia, unspecified; Z60.2 Problems related to living alone; Z63.6 Dependent relative needing care at home; Z79.01 Long term (current) use of anticoagulants; Z79.899 Other long term (current) drug therapy; Z90.49 Acquired absence of other specified parts of digestive tract; Z86.718 Personal history of other venous thrombosis and embolism; Z23 Encounter for immunization; Z87.891 Personal history of nicotine dependence
CPT/HCPCS: 71275; 80048; 80053; 80061; 81003; 81015; 83036; 83735; 83880; 84443; 84484; 85025; 85027; 85379; 85730; 87086; 90656; 93005; 93306; 94660; 96374; 99285; G0008; Q9967

== ENCOUNTER 2025-03-29 13:21 | Emergency (ER) | payer OTHER, SELFPAY ==
[2025-03-29] VITALS (12 sets, daily range): BP systolic 93–175; BP diastolic 52–103
--- NOTE | 2025-03-29 14:57 | ED.GENMED ---
History of Present Illness
General
Chief Complaint: Heart Rate Problem
Time Seen by Provider: 03/29/25 14:57
History of Present Illness
History of Present Illness:
FOCUSED PAST MEDICAL HISTORY
- A-fib, high blood pressure
REVIEW OF OLD RECORDS
- I reviewed records, the patient was admitted here 10 days ago and was found to be in rapid A-fib and was loaded with Tikosyn. She was started on lisinopril and Tikosyn 500 mcg twice daily and continued Eliquis 5 mg twice daily
- She was admitted in January 2024-was found to be in new onset rapid A-fib and had bilateral PEs and was placed on Eliquis. At that time she spontaneously converted.
Note:
CHIEF COMPLAINT(S)
Irregular heart rhythm, tachycardia.
HISTORY OF PRESENT ILLNESS
The patient is a 64-year-old female with a notable past medical history of atrial fibrillation. She recently resumed care for her cardiac condition and was started on dofetilide (Tikosyn) approximately 10 days ago to manage her heart rhythm,
specifically for atrial fibrillation. Today, she reports the onset of an irregular, rapid heart rhythm occurring this afternoon around 12:30 PM, which she describes as feeling out of sync and typical of her experiences during atrial fibrillation
episodes. Despite current treatment, she perceives herself to be in atrial fibrillation and acknowledges the sensation of her heart racing. She remains on apixaban (Eliquis) for anticoagulation and has not missed any doses. No additional
medications, such as beta-blockers, are being used for heart rate control. The patient has a history of being cardioverted (electrically shocked out of arrhythmia) during past emergency department visits but indicates that on some occasions, she
spontaneously converted back to normal sinus rhythm without the need for electrical intervention. She has not contacted her motel clerk, Dr. Bennett, today regarding these symptoms.
PAST MEDICAL AND SURGICAL HISTORY
Atrial fibrillation, hyperlipidemia, hypertension.
EXTERNAL RECORDS REVIEWED
The patient was recently treated with dofetilide (Tikosyn) by her motel clerk at [facility].
CHRONIC MEDICAL CONDITIONS SIGNIFICANTLY AFFECTING CARE
Atrial fibrillation, hyperlipidemia, hypertension.
MEDICATIONS
- Dofetilide (Tikosyn)
- Apixaban (Eliquis)
- Unspecified cholesterol medication
- Unspecified antihypertensive medication.
REVIEW OF SYSTEMS
- Cardiovascular: Reports heart racing, feels heart rhythm is out of sync indicating atrial fibrillation.
PHYSICAL EXAM
General: Alert, no acute distress.
Skin: Warm, dry.
Head: Normocephalic, atraumatic.
Neck: Supple, trachea midline.
Eye Ears, nose, mouth and throat: Oral mucosa moist.
Cardiovascular: Tachycardic with an irregular rhythm, normal peripheral perfusion, no edema.
Respiratory: Respirations are non-labored.
Gastrointestinal : Abdomen nondistended.
Back: Normal range of motion, Normal alignment.
Musculoskeletal: Normal ROM, normal strength.
Neurological: Alert and oriented to person, place, time, and situation, No focal neurological deficit observed.
Psychiatric: Cooperative, appropriate mood & affect.
PROBLEM LIST
Acute Problems:
- Atrial fibrillation
- Tachycardia
Chronic Problems:
- Hyperlipidemia
- Hypertension
PLAN
1. Contact the patient�s motel clerk, Dr. Bennett, for further guidance on management strategy, including potential cardioversion.
2. Consider administration of diltiazem (Cardizem) to control heart rate pending motel clerk input.
3. The patient has been advised to refrain from eating in preparation for possible electrophysiological intervention or sedation for cardioversion.
DIFFERENTIAL DIAGNOSIS
The Differential Diagnosis includes, in no particular order and is not limited to:
- Atrial fibrillation
- Atrial flutter
- Supraventricular tachycardia
- Ventricular tachycardia
- Mitral valve prolapse
- Heart failure exacerbation
- Myocardial ischemia
- Pulmonary embolism
- Hyperthyroidism
- Medication-induced arrhythmia.
EKG
- A-fib/flutter, ventricular rate 123
LABS
- Magnesium, troponin, potassium normal, CBC unremarkable
UPDATE
- I discussed case with Dr. Higuera who agrees with using Cardizem
- I spoke to him again about the option of cardioversion
SUMMARY OF ENCOUNTER
The patient, a 64-year-old female with a history of atrial fibrillation, presented with irregular heart rhythm and tachycardia. She was seen in the emergency department for the rapid onset of atrial fibrillation, typical of her previous episodes.
After discussing her case with cardiology, a decision was made to proceed with electrical cardioversion. The procedure was performed without difficulty using Propofol and a 150 joule biphasic shock, successfully converting the patients rhythm to
normal sinus rhythm.
DISPOSITION
Discharge
ASSESSMENT
The patient presented with an atrial fibrillation episode, which was effectively managed with electrical cardioversion.
EMERGENCY TREATMENTS ADMINISTERED
Propofol was administered for sedation before the electrical cardioversion.
MANAGEMENT OF THE PATIENTS CARE WAS DISCUSSED WITH
Cardiology team.
PLAN
Discharge the patient with instructions to continue her usual medications. Arrange close outpatient follow-up with her motel clerk.
PATIENT EDUCATION AND COUNSELING
The patient was informed about the procedure and advised on recognizing symptoms of atrial fibrillation recurrence. She was also educated on the importance of medication adherence and follow-up care.
FOLLOW-UP INSTRUCTIONS
The patient is advised to follow up with her motel clerk for further evaluation and management.
MEDICAL DECISION MAKING
- Number and Complexity of Problems Addressed: Chronic conditions affecting care include atrial fibrillation, hyperlipidemia, and hypertension. Differential diagnoses considered included atrial flutter, supraventricular tachycardia, ventricular
tachycardia, mitral valve prolapse, heart failure exacerbation, myocardial ischemia, pulmonary embolism, hyperthyroidism, and medication-induced arrhythmia.
- Data:
Category 3: Discussion of management with the cardiology team, resulting in the decision to proceed with electrical cardioversion.
- Risk: Prescription medication management and therapy requiring monitoring for toxicity were considered since the patient resumed usual medications post-procedure.
DIAGNOSIS
Atrial Fibrillation with RVR
Electrical cardioversion
Past History
Past History
ED Past Medical History: Arrthythmia (Atrial fibrillation), HTN, Hypercholesterolemia, Other (DVT, bilateral PE January 2024. Started on Eliquis) and Other (DVT)
ED Past Surgical History: Cholecystectomy and Gynecological
Social History
Tobacco: Non-smoker
Alcohol: Occasional
Drug: None
Personal:
Living: alone ( resides in personal-care facility)
Employment: Retired
Family History
Family History: Other (No history of gallbladder disease.)
Phy Exam
Physical Exam
Physical Exam:
See HPI
Course
Orders/Labs/Results
Orders:
Orders
03/29/25 13:22
EKG [Electrocardiogram (*1)] Urgent
Reason for Study: Palpitations
03/29/25 13:23
EKG- Treatment ONCE
03/29/25 15:07
Basic Metabolic Panel Urgent
Complete Blood Count/With Diff Urgent
Magnesium Urgent
Troponin I Urgent
03/29/25 15:09
Diltiazem HCl [Cardizem] 10 mg IV NOW STA
03/29/25 15:15
Diltiazem 125 mg/125 ml Nss [Cardizem] 125 mg in 125 ml IV PER PROTOCOL
Initial dose in mg/hr, then titrate:: 5
Titrate to keep:: Heart rate 80-100 bpm
Titrate by mg/hr:: 5 mg/hr
Frequency of titrations (minutes):: 15
Maximum dose in mg/hr:: 15
03/29/25 15:28
0.9% Sodium Chloride 1000 ml [Nss] 1,000 ml IV BOLUS
03/29/25 16:47
Propofol [Diprivan] 20 ml .ROUTE .STK-MED
03/29/25 16:56
Electrocardiogram (*1) Urgent
Reason for Study: Atrial Fibrillation
EKG- Treatment ONCE
Abnormal Lab Results
03/29/25
15:07
Hct 47.4 H %
(37.0-47.0)
Absolute Monos (auto) 0.9 H 10^3/uL
(0.1-0.6)
Immature Gran % 0.7 H %
(0-0.5)
Monocytes % 15.8 H %
(1.7-9.3)
BUN 18 H mg/dl
(7-17)
Glucose 151 H mg/dl
(70-99)
03/29/25 15:07
03/29/25 15:07
Vital Signs
Initial and Last Documented VS:
Initial Vital Signs
Temp Pulse Resp BP Pulse Ox
37.0 C 133 16 175/101 95
03/29/25 13:28 03/29/25 13:28 03/29/25 13:28 03/29/25 13:28 03/29/25 13:28
Last Documented Vital Signs
Temp Pulse Resp BP Pulse Ox
36.8 C 67 16 108/63 93
03/29/25 16:58 03/29/25 17:03 03/29/25 17:03 03/29/25 17:03 03/29/25 17:03
Procedures
Cardioversion
Indication:: Afib
Performed by:: , Dr. King
Synchronized?: Yes
Energy Used: 150 joules
Number of attempts: 1
Successful?: Yes
ASA Risk Score: Class III
Any reaction or bad outcome to prior sedation/anesthesia?: No history of a reaction
Sedation level to be attained: moderate
Chart and allergies reviewed: Yes
Patient reassessed prior to sedation: Yes
Time out completed at (validating right patient & procedure): 17:15
History of difficult intubation: No
Airway free of obstruction: Yes
Patient has a gag reflex: Yes
Patient is able to open mouth: Yes
Patient has no dentures: Yes
Patient has no loose teeth: Yes
Medication administered by Provider during Moderate Sedation: IV Propofol (mg) (70)
Total dose administered: 70
Time drug administered: 16:53
Start Time: 16:53
Stop Time: 17:03
*Pulse Oximetry
SaO2: 95
Oxygen Mode of Delivery: Room air
Patient hypoxic: no
*Critical Care Note
Total Time (30-74mins, 75-104mins- exclusive of procedures): Not Applicable
ED Attending Note
-
Portions of this chart may have been created with voice recognition software.� Occasional wrong word or��sound alike� substitutions may have occurred due to the inherent limitations of voice recognition software.
Discharge Plan
Departure
Prescriptions:
No Action
escitalopram oxalate 20 MG tablet
20 mg PO HS
magnesium 250 MG tablet
250 mg PO DAILY
therapeutic multivitamin Tablet
1 tab PO DAILY
clotrimazole-betamethasone 1-0.05 % Cream
1 applic TOPICAL BIDPRN PRN (Reason: itching)
rosuvastatin 10 mg Tablet
10 mg PO DAILY
lurasidone 20 mg Tablet
20 mg PO HS
Eliquis 5 mg Tablet
5 mg PO BID
lisinopril 10 mg Tablet
10 mg PO BID Qty: 60 0RF
dofetilide 500 mcg Capsule
500 mcg PO Q12H Qty: 60 0RF
Referrals:
Celso Alvarado DO [Family Provider, Family Practice]
Interventions
Interventions:
*Risk Screen - Suicide Last Done: 03/29/25 13:28
*General Assessment Last Done: 03/29/25 15:09
*Neglect/Abuse Screening Last Done: 03/29/25 13:28
*ED- Fall Risk Assessment Last Done: 03/29/25 15:09
*ED COVID-19 Vaccine History Last Done: 03/29/25 15:09
*ED Influenza Vaccine History Last Done: 03/29/25 15:09
ED- Cardiac Assessment Last Done: 03/29/25 15:09
ED- Pulmonary Assessment Last Done: 03/29/25 15:09
Discharge Date and Time
Print Language: FRISIAN
[2025-03-29] MEDS: CARDIZEM 125 IV (15:12)
[2025-03-29] MEDS: CARDIZEM 10 MG IV (15:12)
[2025-03-29 15:16] LABS: Hematocrit 47.4 % (37.0-47.0); Hemoglobin 15.9 g/dL (12.0-16.0); Mean Corp Hgb Conc. 33.5 g/dL (33.0-37.0); Mean Corpuscular Volume 88.6 fL (81.0-99.0); Nucleated Red Blood Cells % 0 %; Platelet Count 268 10^3/uL (130-400); Red Cell Dist. Width 13.3 % (11.5-14.5)
[2025-03-29 15:25] LABS: Blood Urea Nitrogen 18 mg/dl (7-17); Calcium 9.3 mg/dl (8.4-10.2); Carbon Dioxide 27 mmol/L (22-30); Chloride 105 mmol/L (98-107); Glucose 151 mg/dl (70-99); Magnesium 2.0 mg/dl (1.6-2.3); Potassium 4.3 mmol/L (3.5-5.1); Sodium 140 mmol/L (135-145); eGFR > 60.00
[2025-03-29] MEDS: NSS 1000 IV (15:28)
[2025-03-29 15:38] LABS: Troponin I < 0.012 ng/ml
== END 2025-03-29 17:49 | disposition home or self-care (01) ==
LOC: EMR 13:21
PROVIDERS: EMERGENCY PHYSICIAN Emergency Medicine; FAMILY PHYSICIAN Family Medicine
DX: I48.91 Unspecified atrial fibrillation (principal); E78.00 Pure hypercholesterolemia, unspecified; I10 Essential (primary) hypertension; Z79.01 Long term (current) use of anticoagulants; Z79.899 Other long term (current) drug therapy; Z86.711 Personal history of pulmonary embolism; Z86.718 Personal history of other venous thrombosis and embolism; Z90.49 Acquired absence of other specified parts of digestive tract
CPT/HCPCS: 92960; 99152; 99285; 96374; 96361; 80048; 83735; 84484; 85025; 93005